=== PATIENT | male | born 2005 | race Asian ===

== ENCOUNTER 2025-05-24 09:13 | Inpatient (IN) ==
--- NOTE | 2025-05-24 09:22 | Emergency Department Note ---
Impression & Plan Confusion, Tachycardia, Weakness ED Provider Note NAME: [id number] AGE: 18 SEX: M : 2005 ARRIVES VIA: Ambulance INFORMANT: Patient, ED PROVIDER(S): Ray Juárez DO CHIEF COMPLAINT: Altered mental status HPI: Patient is a 18-year-old male who went to the [facility] from [place] yesterday. He was admitted there on a 201 for passive suicidal thoughts but no clear plan. No attempts per report from the nurse at the [facility] who I discussed with and provided additional history. They note that he at the time of arrival was having trouble walking and was very tired. Per report from EMS who provided additional history he fell and they brought him over here as he has been more confused. Patient denies any chest pain shortness of breath belly pain or head pain. He is able to otherwise follow commands. ADDITIONAL HISTORY OBTAINED: Per HPI Chronic Medical/Social Conditions Affecting Care: Per HPI PAST MEDICAL HISTORY:See Below PAST SURGICAL HISTORY:See Below FAMILY HISTORY:See Below SOCIAL HISTORY:See Below HOME MEDICATIONS:See Below ALLERGIES:See Below VITALS:See Below PHYSICAL EXAMINATION: GENERAL: Laying in bed, eyes closed, with crusting of bilateral eye lids, not opening eyes EYE EXAM: normal conjunctiva. PERRL and EOM's grossly intact. OROPHARYNX: no exudate, no erythema, lips, buccal mucosa, and tongue normal and mucous membranes are moist NECK: supple, no nuchal rigidity, no adenopathy, non-tender LUNGS: Clear to auscultation. Normal chest wall mechanics HEART: no murmurs, S1 normal and S2 normal ABDOMEN: abdomen soft, non-tender, normo-active bowel sounds, no masses, no rebound or guarding. BACK: Back is symmetrical on inspection and there is no deformity, no midline tenderness, no CVA tenderness. UPPER EXTREMITIES: upper extremities are grossly normal. LOWER EXTREMITIES: No pitting edema. NEURO EXAM: Oriented to person and follows commands speaks very softly, cranial nerves II-XII grossly intact, very soft one-word answers, no gross weakness of arms, no gross weakness of legs. MEDICAL DECISION MAKING: Patient is a 18-year-old male who presents ER for above-stated complaint. IV was established and blood work was obtained. Labs show no significant leukocytosis. Mild anemia at 13.3. BMP was unremarkable. VBG with a pH 7.4 with CO2 of 43. Troponin negative. Lipase normal. UA clean. Tox was negative. Marijuana negative. [place] negative. Patient did answer questions with one-word answers and did follow commands. CT of the head was negative. Chest x-ray unremarkable. Patient was given IV fluids. Discussed case with the hospitalist for further evaluation management treatment. Consults/Care Managements Discussions: Per [facility] Triage Nursing notes reviewed. Limited review of prior medical records performed Vital Signs: reviewed and remarkable for no significant abnormalities Differential diagnosis: Differential diagnoses includes but is not limited to toxic, metabolic, infectious, traumatic, cardiac, neurologic, hematologic, psychiatric and inflammatory etiologies. ER treatment provided: See below Diagnostics interpreted by me include EKG and cardiac monitoring as listed below: -Cardiac Monitoring: An order was placed for continuous cardiac monitoring. The monitor shows a rate of 101 with sinus rhythm. -ECG: Sinus tachycardia rate of 109 left axis No PVCs QTc 471 -Laboratory studies:Interpreted by me as stated above in MDM and shown below. Imaging studies: Xrays: As interpreted by me: Portable AP upright 1 view of the chest shows no focal Lutrate CTs show: CT head was negative per radiology Procedures:none Critical Care: None Past Med/Surg History Problem List (Updated 05/24/25 @ 15:33 by Ray Juárez DO) Weakness (Acute) Tachycardia (Acute) Confusion (Acute) Social History Hx Alcohol Use: No Hx Substance Use: No Communication Ability: Impaired Communication Ability Comment: too lethargic to communicate affectively. disoriented Current Living Situation: Other Current Living Situation Comment: from [place] currently residing at [place] Allergies Allergies Allergy/AdvReac Type Severity Reaction Status Date / Time No Known Allergies Allergy Verified 05/24/25 14:19 Home Meds Home Medications Medication Instructions Recorded Confirmed clozapine 25 mg tablet 25 mg PO DAILY 05/24/25 05/24/25 clozapine 25 mg tablet 50 mg PO HS 05/24/25 05/24/25 lamotrigine 25 mg tablet (Lamictal) 25 mg PO DAILY 05/24/25 05/24/25 lithium carbonate 450 mg 450 mg PO BID 05/24/25 05/24/25 tablet,extended release lorazepam 1 mg tablet 1 mg PO BID 05/24/25 05/24/25 Results & Data (ED) Vital Signs Vital Signs - 24 hr 05/24/25 09:39 05/24/25 09:39 05/24/25 09:39 Temperature 36.8 C Temperature Source Axillary Pulse Rate 113 H Respiratory Rate 22 Respiratory Effort / Characteristics Non-Labored Spontaneous Respiratory Depth Normal Blood Pressure 131/78 Blood Pressure Mean 95 Pulse Oximetry 97 97 97 Oxygen Delivery Method Room Air Room Air Room Air Sepsis Recent Fever Within 48 Hours No Sepsis New/Unexplained Change in Mental Status N/A Sepsis Action Taken by Nursing Physician Notified 05/24/25 10:43 Temperature Temperature Source Pulse Rate 113 H Respiratory Rate Respiratory Effort / Characteristics Respiratory Depth Blood Pressure Blood Pressure Mean Pulse Oximetry Oxygen Delivery Method Sepsis Recent Fever Within 48 Hours Sepsis New/Unexplained Change in Mental Status Sepsis Action Taken by Nursing Laboratory Data 05/24/25 10:33 05/24/25 10:33 Lab Results 05/24/25 05/24/25 Range/Units 09:15 10:33 WBC 6.07 (4.8-10.8) K/ul RBC 4.35 L (4.70-6.10) M/uL Hgb 13.3 L (14.0-18.0) g/dL Hct 39.7 L (42.0-52.0) % MCV 91.3 (80.0-100.0) fL MCH 30.6 (25.0-34.0) pg MCHC 33.5 (32.0-36.0) g/dL RDW Std Deviation 38.9 (36.4-46.3) fL RDW Coeff of Hannah 11.8 (11.5-14.5) % Plt Count 254 (130-400) K/uL MPV 8.3 L (9.4-12.4) fL Immature Gran % (Auto) 0.3 % Neut % (Auto) 67.5 % Lymph % (Auto) 22.1 % [place] % (Auto) 6.8 % Eos % (Auto) 2.8 % Baso % (Auto) 0.5 % Neut # (Auto) 4.10 (1.40-6.50) K/uL Lymph # (Auto) 1.34 (1.20-3.40) K/uL [place] # (Auto) 0.41 (0.11-0.59) K/uL Eos # (Auto) 0.17 (0.00-0.50) K/uL Baso # (Auto) 0.03 (0.00-0.20) K/uL Immature Gran # (Auto) 0.02 (0.01-0.20) K/uL D-Dimer < 190 (0-500) ug/L FEU Sodium 141 (136-145) mmol/L Potassium 3.6 (3.5-5.1) mmol/L Chloride 107 (98-107) mmol/L Carbon Dioxide 25 (21-32) mmol/L Anion Gap 9 (3-11) BUN 8 (6-23) mg/dl Creatinine 0.60 (0.6-1.4) mg/dl Est Cr Clr Drug Dosing 199.4 ml/min eGFR 139.97 BUN/Creatinine Ratio 13.3 (10-20) Glucose 86 (70-99(Fasting)) mg/dl Calcium 9.2 (8.6-10.3) mg/dl Total Bilirubin 0.6 (0.2-1.0) mg/dl AST 22 (13-39) U/L ALT 49 (7-52) U/L Alkaline Phosphatase 68 (34-104) U/L Troponin I High Sens < 2.3 (0-20) pg/ml Total Protein 7.1 (6.0-8.3) gm/dl Albumin 4.4 (3.4-5.0) gm/dl Globulin 2.7 (2.5-4.0) gm/dl Albumin/Globulin Ratio 1.6 (0.9-2) Lipase 9 L (11-82) U/L [place] 0.2 L (0.6-1.2) mmol/L Administered Medications Enoxaparin Sodium (Enoxaparin Inj 40 Mg/0.4 Ml Syr) 40 mg SQ Q24H RICARDO Stop: 06/23/25 14:59 Last Admin: 05/24/25 14:29 Dose: 40 mg Documented By: OS Lactated Ringer's (Lr) 1,000 mls @ 125 mls/hr IV .Q8H RICARDO Stop: 05/27/25 13:26 Last Admin: 05/24/25 13:37 Dose: 125 mls/hr Documented By: AM Discontinued Medications Sodium Chloride (Nss) 1,000 mls @ 999 mls/hr IV .Q1H1M RICARDO Stop: 05/24/25 11:30 Last Infusion: 05/24/25 13:39 Dose: Infused Documented By: Admin: 05/24/25 12:37 Dose: 999 mls/hr Documented By: akv Infusion: 05/24/25 11:07 Dose: Infused Documented By: akv Admin: 05/24/25 10:06 Dose: 999 mls/hr Documented By: [facility] Imaging Data Radiologist's Impression: Chest X-Ray 05/24/25 09:19 HISTORY: Chest pain TECHNIQUE: Portable AP radiograph of the chest. COMPARISON: None. FINDINGS: monitoring manager leads overlie the chest. No focal lung consolidation. No pneumothorax or effusion. Normal heart size. Left-sided aortic arch. Midline trachea.No acute osseous abnormality. The included upper abdomen is unremarkable. IMPRESSION: No acute cardiopulmonary findings. Electronically signed by Shad Castaneda 05-24-2025 09:[address] 05/24/25 09:19 HISTORY: Altered mental status. TECHNIQUE: CT of the head without contrast. Images are presented in axial, sagittal, and coronal reformats. COMPARISON: None. FINDINGS: No evidence of intracranial hemorrhage, abnormal extra axial fluid collection, mass effect, or midline shift.Ventricular caliber is appropriate. Fourth ventricle is midline. Basal cisterns are patent.Bermeo-white differentiation is maintained. Globes and orbits are unremarkable.Soft tissues about the skull base and scalp are unremarkable.Paranasal sinuses and mastoid air cells are clear. No calvarial fracture. IMPRESSION: No acute intracranial findings. Electronically signed by Shad Castaneda 05-24-2025 11:04 AM Discharge Plan Visit Data Chief Complaint: Altered Mental Status Stated Complaint: AMS ED Provider: Ray Juárez Discharge Problem: Confusion, Tachycardia, Weakness Patient Disposition: Admitted As Inpatient Condition: Fair Discharge Instructions Interventions: ED Discharge Assessment Last Done: 05/24/25 12:56
[2025-05-24] MEDS: SODIUM CHLORIDE 0.9% 1,000 ML IV SCH (10:06)
--- NOTE | 2025-05-24 10:19 | XRay Report ---
HISTORY: Chest pain TECHNIQUE: Portable AP radiograph of the chest. COMPARISON: None. FINDINGS: conveyor monitor leads overlie the chest. No focal lung consolidation. No pneumothorax or effusion. Normal heart size. Left-sided aortic arch. Midline trachea.No acute osseous abnormality. The included upper abdomen is unremarkable. IMPRESSION: No acute cardiopulmonary findings. Electronically signed by Shad Castaneda 05-24-2025 09:52 AM
[2025-05-24 10:50] LABS: Hematocrit (blood only) 39.7 % (42.0-52.0); Hemoglobin 13.3 g/dL (14.0-18.0); Immature Granulocytes # (auto) 0.02 K/uL (0.01-0.20); Immature Granulocytes % (auto) 0.3 %; Mean Corpuscular Hemoglobin 30.6 pg (25.0-34.0); Mean Corpuscular Volume 91.3 fL (80.0-100.0); Platelet Count 254 K/uL (130-400); RDW Standard Deviation 38.9 fL (36.4-46.3); Red Blood Count 4.35 M/uL (4.70-6.10); White Blood Count 6.07 K/ul (4.8-10.8)
--- NOTE | 2025-05-24 11:04 | CT Scan Report ---
HISTORY: Altered mental status. TECHNIQUE: CT of the head without contrast. Images are presented in axial, sagittal, and coronal reformats. COMPARISON: None. FINDINGS: No evidence of intracranial hemorrhage, abnormal extra axial fluid collection, mass effect, or midline shift.Ventricular caliber is appropriate. Fourth ventricle is midline. Basal cisterns are patent.Bermeo-white differentiation is maintained. Globes and orbits are unremarkable.Soft tissues about the skull base and scalp are unremarkable.Paranasal sinuses and mastoid air cells are clear. No calvarial fracture. IMPRESSION: No acute intracranial findings. Electronically signed by Shad Castaneda 05-24-2025 11:04 AM
[2025-05-24 11:09] LABS: Alanine Aminotransferase 49 U/L (7-52); Albumin Globulin Ratio 1.6 (0.9-2); Albumin Level 4.4 gm/dl (3.4-5.0); Alkaline Phosphatase 68 U/L (34-104); Anion Gap 9 (3-11); Bilirubin,Total 0.6 mg/dl (0.2-1.0); Blood Urea Nitrogen 8 mg/dl (6-23); Calcium 9.2 mg/dl (8.6-10.3); Carbon Dioxide 25 mmol/L (21-32); Chloride 107 mmol/L (98-107); Creatinine Clr Calc Pharmacy 199.4 ml/min; Globulin 2.7 gm/dl (2.5-4.0); Glucose 86 mg/dl (70-99(Fasting)); Lipase 9 U/L (11-82); Potassium 3.6 mmol/L (3.5-5.1); Sodium 141 mmol/L (136-145); Total Protein 7.1 gm/dl (6.0-8.3)
--- NOTE | 2025-05-24 12:19 | History & Physical Report ---
Date of Service May 24, 2025 Assessment & Plan (1) Confusion: Plan: 20-year-old male was admitted to [facility] last night from hospital from [facility] for suicidal ideation. Seems patient was having trouble walking and very tired on arrival to [facility]. Seems he fell over and was confused and was brought to the hospital .As per the [facility] did not give any more medication than what he is on from the outside hospital. Currently, not able to contact his father. Right now patient is drowsy. And when tried to wake him up he opens his eyes and mumbles and goes back to sleep. Could not get any history from the patient. He is able to move his neck on command freely. Not able get much history from the patient. For the ER he seemed to be oriented to name and followed some commands. Confusion Lethargy Afebrile No leukocytosis, LFTs okay, electrolytes okay, renal function okay [place] level 0.2 CT head okay Neck seems supple VBG, ammonia level, drug screen unremarkable as not improving will agapito MRI head and EEG Will consult neurology Psychiatric illness Suicidal ideation One-on-one Will hold his current medications as patient currently lethargic Psychiatry consult for further recommendation Zyprexa as needed for agitation for now Tachycardia Sinus tachycardia Troponin negative Negative D-dimer IV fluids Will monitor DVT prophylaxis Lovenox Disposition Telemetry Full code. History of Present Illness Chief Complaint: Confusion Primary Care Provider: NO PCP 20-year-old male was admitted to [facility] last night from hospital from [facility] for suicidal ideation. Seems patient was having trouble walking and very tired on arrival to [facility]. Seems he fell over and was confused and was brought to the hospital .As per the [facility] did not give any more medication than what he is on from the outside hospital. Currently, not able to contact his father. Right now patient is drowsy. And when tried to wake him up he opens his eyes and mumbles and goes back to sleep. Could not get any history from the patient. He is able to move his neck on command freely. Not able get much history from the patient. For the ER he seemed to be oriented to name and followed some commands. Past medical history. Unknown at this time. Past surgical history. Unknown at this time. Family history. Unknown at this time. Allergies Allergy/AdvReac Type Severity Reaction Status Date / Time No Known Allergies Allergy Verified 12/14/25 14:19 Home Medications Medication Instructions Recorded Confirmed Type clozapine 25 mg tablet 25 mg PO DAILY 05/24/25 05/24/25 History clozapine 25 mg tablet 50 mg PO HS 05/24/25 05/24/25 History lamotrigine 25 mg tablet (Lamictal) 25 mg PO DAILY 05/24/25 05/24/25 History lithium carbonate 450 mg 450 mg PO BID 05/24/25 05/24/25 History tablet,extended release lorazepam 1 mg tablet 1 mg PO BID 05/24/25 05/24/25 History Past Med/Surg History Problem List (Updated 05/24/25 @ 16:10 by Stacy Roach DO) Schizoaffective disorder, bipolar type Delirium Weakness (Acute) Tachycardia (Acute) Confusion (Acute) Social History Hx Alcohol Use: No Hx Substance Use: No Communication Ability: Impaired Communication Ability Comment: too lethargic to communicate affectively. disoriented Current Living Situation: Other Current Living Situation Comment: from [place] currently residing at [place] Review of Systems Review of Systems: Unobtainable due to reduced consciousness Physical Exam Physical Exam: General- Drowsy Head- atraumatic Eyes- difficult to open eyes Neck- supple, no JVD. Lungs- clear to auscultation no wheezing or crackles Heart- regular rhythm;tachycardia, no murmur, no gallop. Abdomen- normal bowel sounds, soft, no distension Extremities- no pretibial edema, no erythema seen Neuro- drowsy, on calling opens eyes and mumbles,not obeying commands Results & Data Results & Data Vital Signs (Past 12 Hours) Vital Signs Temp Pulse Resp BP Pulse Ox O2 Del Method 05/24/25 10:43 113 H 05/24/25 09:39 97 Room Air 05/24/25 09:39 97 Room Air 05/24/25 09:39 36.8 C 113 H 22 131/78 97 Room Air Diagnostic Findings Laboratory Results WBC 6.07 K/ul (4.8-10.8) 05/24/25 10:33 RBC 4.35 M/uL (4.70-6.10) L 05/24/25 10:33 Hgb 13.3 g/dL (14.0-18.0) L 05/24/25 10:33 Hct 39.7 % (42.0-52.0) L 05/24/25 10:33 MCV 91.3 fL (80.0-100.0) 05/24/25 10:33 MCH 30.6 pg (25.0-34.0) 05/24/25 10:33 MCHC 33.5 g/dL (32.0-36.0) 05/24/25 10:33 RDW Std Deviation 38.9 fL (36.4-46.3) 05/24/25 10:33 RDW Coeff of Hannah 11.8 % (11.5-14.5) 05/24/25 10:33 Plt Count 254 K/uL (130-400) 05/24/25 10:33 MPV 8.3 fL (9.4-12.4) L 05/24/25 10:33 Immature Gran % (Auto) 0.3 % 05/24/25 10:33 Neut % (Auto) 67.5 % 05/24/25 10:33 Lymph % (Auto) 22.1 % 05/24/25 10:33 [place] % (Auto) 6.8 % 05/24/25 10:33 Eos % (Auto) 2.8 % 05/24/25 10:33 Baso % (Auto) 0.5 % 05/24/25 10:33 Neut # (Auto) 4.10 K/uL (1.40-6.50) 05/24/25 10:33 Lymph # (Auto) 1.34 K/uL (1.20-3.40) 05/24/25 10:33 [place] # (Auto) 0.41 K/uL (0.11-0.59) 05/24/25 10:33 Eos # (Auto) 0.17 K/uL (0.00-0.50) 05/24/25 10:33 Baso # (Auto) 0.03 K/uL (0.00-0.20) 05/24/25 10:33 Immature Gran # (Auto) 0.02 K/uL (0.01-0.20) 05/24/25 10:33 Sodium 141 mmol/L (136-145) 05/24/25 10:33 Potassium 3.6 mmol/L (3.5-5.1) 05/24/25 10:33 Chloride 107 mmol/L (98-107) 05/24/25 10:33 Carbon Dioxide 25 mmol/L (21-32) 05/24/25 10:33 Anion Gap 9 (3-11) 05/24/25 10:33 BUN 8 mg/dl (6-23) 05/24/25 10:33 Creatinine 0.60 mg/dl (0.6-1.4) 05/24/25 10:33 Est Cr Clr Drug Dosing 199.4 ml/min 05/24/25 10:33 eGFR 139.97 05/24/25 10:33 BUN/Creatinine Ratio 13.3 (10-20) 05/24/25 10:33 Glucose 86 mg/dl (70-99(Fasting)) 05/24/25 10:33 Calcium 9.2 mg/dl (8.6-10.3) 05/24/25 10:33 Total Bilirubin 0.6 mg/dl (0.2-1.0) 05/24/25 10:33 AST 22 U/L (13-39) 05/24/25 10:33 ALT 49 U/L (7-52) 05/24/25 10:33 Alkaline Phosphatase 68 U/L (34-104) 05/24/25 10:33 Troponin I High Sens < 2.3 pg/ml (0-20) 05/24/25 10:33 Total Protein 7.1 gm/dl (6.0-8.3) 05/24/25 10:33 Albumin 4.4 gm/dl (3.4-5.0) 05/24/25 10:33 Globulin 2.7 gm/dl (2.5-4.0) 05/24/25 10:33 Albumin/Globulin Ratio 1.6 (0.9-2) 05/24/25 10:33 Lipase 9 U/L (11-82) L 05/24/25 10:33 [place] 0.2 mmol/L (0.6-1.2) L 05/24/25 10:33 Impressions Chest X-Ray 05/24/25 09:19 HISTORY: Chest pain TECHNIQUE: Portable AP radiograph of the chest. COMPARISON: None. FINDINGS: monitoring analyst leads overlie the chest. No focal lung consolidation. No pneumothorax or effusion. Normal heart size. Left-sided aortic arch. Midline trachea.No acute osseous abnormality. The included upper abdomen is unremarkable. IMPRESSION: No acute cardiopulmonary findings. Electronically signed by Shad Castaneda 05-24-2025 09:[address] 05/24/25 09:19 HISTORY: Altered mental status. TECHNIQUE: CT of the head without contrast. Images are presented in axial, sagittal, and coronal reformats. COMPARISON: None. FINDINGS: No evidence of intracranial hemorrhage, abnormal extra axial fluid collection, mass effect, or midline shift.Ventricular caliber is appropriate. Fourth ventricle is midline. Basal cisterns are patent.Bermeo-white differentiation is maintained. Globes and orbits are unremarkable.Soft tissues about the skull base and scalp are unremarkable.Paranasal sinuses and mastoid air cells are clear. No calvarial fracture. IMPRESSION: No acute intracranial findings. Electronically signed by Shad Castaneda 05-24-2025 11:04 AM ECG Additional Comments: ECG. Sinus tachycardia rate of 109. Possible left atrial enlargement. Incomplete right bundle branch block. QTc 471 Code Status & VTE Plan VTE Prophylaxis Plan VTE Prophylaxis will be ordered: Yes
[2025-05-24 12:49] LABS: Base Excess VBG 2.2 mEq/L; HCO3 VBG 27 mmol/L; Oxygen Saturation VBG 80.7 %; PCO2 VBG 43 mmHg (38-50); PO2 VBG 46 mmHg; pH VBG 7.41 (7.36-7.41)
[2025-05-24] MEDS ORDERED: POLYETHYLENE (MIRALAX) 17 GM PACK PO PRN (13:27)
[2025-05-24] MEDS: LACTATED RINGER'S 1,000 ML IV SCH (13:37)
[2025-05-24] MEDS ORDERED: INFLUENZA VACC TS2025-26(6m+)/PF (IIV3) 0.5mL Syr IM ONE (13:47)
[2025-05-24] MEDS: ENOXAPARIN INJ 40 MG/0.4 ML SYR SQ SCH (14:29)
[2025-05-24 14:30] LABS: Appearance Urine Clear (Clear); Glucose Urine UA Negative (Negative)
[2025-05-24 14:52] LABS: Amphetamines+Metham, Urine Neg (Neg); MDMA (Ecstacy), Urine Neg (Neg); Marijuana, Urine Neg (Neg)
--- NOTE | 2025-05-24 16:27 | Psychiatric Consultation ---
Date of Consultation May 24, 2025 Impression / Recommendations Impression Patient is a 20-year-old male, with history of schizoaffective disorder bipolar type, and possibly recently initiated on Clozaril and lithium. He is now presenting with psychomotor slowing, confusion, lethargy, recent fall, intention tremor and waxing and waning confusion/disorientation. He also continues to report auditory hallucinations, but that may his baseline given his psychiatric diagnosis. Since at this point we are assuming this is a acute change to his mental status, diagnosis is most consistent with hypoactive delirium, and workup should continue for the cause of the delirium. I recommend full neurologic workup, including a brain MRI and an EEG to rule out CVA and seizure. Cardiac arrhythmia is also possibility, and he remains on telemetry for now. [place] toxicity is not likely, given his level is 0.2. I do recommend holding all psychiatric meds until we see improvement in his mental status. Although he is on 2 antipsychotics, NMS is not likely since he does not have rigidity, hypertension or fever. Although it is unclear how long he has really been on Clozaril, important to keep in mind that complications from Clozaril treatment can be serious and quite varied, including cardiac (arrhythmias, myocarditis or pericarditis, cardiomyopathy), anticholinergic ( dry mouth, blurred vision, urinary retention, constipation and cognitive dysfunction), GI (toxic megacolon, hepatotoxicity), heme (neutropenia or agranulocytosis, DVT), and metabolic (hyperlipidemia, insulin resistance, increased cardiovascular risk, weight gain). It is also possible that this is catatonia associated with his psychotic disorder. However that is lower on my differential. I'm also hesitant to start scheduled benzo given his lethargy and confusion. We are going to work on getting a better history of his recent and past presentations, either from [facility], his parents or his outpatient provider, which may help clarify this. I do recommend continuing on the 1:1 for safety, and suicide risk precautions. Overall, I spent a total of 70 minutes on this patient's care, including review of chart/records, direct evaluation of the patient, coordination with nursing, interdisciplinary team meeting, and documentation. (1) Delirium: (2) Schizoaffective disorder, bipolar type: Psych History Identifying Data Clifton Glass is a 20-year-old male who was admitted to [facility] today for altered mental status workup. Consult is by the hospitalist service for lethargy, psychiatric illness, SI. Chief Complaint "[]". History of Present Illness Patient is originally from [place] and was recently admitted to [facility] for suicidal ideation. Reportedly once he arrived he appeared lethargic, mumbling and giving one-word answers, so he was sent here for medical evaluation. He also reportedly had a fall. Per their report, patient "had a mental breakdown 6 months ago" and has been inpatient several times since then. He has a diagnosis of schizoaffective disorder bipolar type. He is supposed to be taking Lamictal 25 mg daily, lithium 450 mg twice daily, Invega Sustenna (last given 05/18), Klonopin 0.5 mg twice daily as needed, and clozapine 50 mg nightly to 25 mg every morning. They stated his lithium level in the admit packet was 1.18, however level here was 0.2. He was at their facility for only a few hours before transport. Since arrival to the emergency room, Patient has had a slew of tests, most of which were normal. Blood gas, lactate, CPK, UDS, UA, CBC, CMP were all within normal limits. Head CT and chest x-ray were also normal. His blood pressure has been within normal limits. Afebrile. His heart rate has been tachy, and the EKG report did indicate possible right bundle branch block. tropes have been negative. QTc was 471. Psychiatric medications have been held. He has significant dry mouth, and crusty discharge around his eyes. He is receiving IV fluids. He has been intermittently lethargic, at times confused, and other times more oriented. His speech is very soft, and he gives short answers. I met with patient in his room, along with the psychiatric liaison. At first, he was whispering and repeated phrase rapidly to himself, but neither the psych liaison nor myself could understand what the words were, or if they were in Syriac or word salad. However with more targeted questioning, he was able to give meaningful answer, though speech remained soft and mumbled. He did best with yes or no questions. He acknowledged having auditory hallucinations and denied visual hallucinations. He acknowledged feeling depressed recently, and that he [facility] He said he feels very tired and at times confused. He also reports mouth pain, but cannot describe where exactly around his mouth or jaw, or what type of pain it was. He did know his name, but not where he was. Did indicate that Clozaril and lithium are both new medications to him, and that they were started recently at a hospital setting. He did acknowledge that he lives with his parents, and gave permission for us to contact them for more information. he was able to follow some instructions, including [id number], exorcist ocular eye movements testing and repeating "no ifs, ands or buts." However, he had difficulty with changes in the instructions, for instance when I asked him to point with his left hand instead of his right, or when I asked him to hold his hands but not touch his fingers to mine. He had a notable intention tremor, and some asterixis. Did not have notable rigidity or cogwheeling. No resting tremor. He did appear to be falling asleep toward the end of the encounter. Past Psychiatric History Previous Psych History: Reports gnosis of schizoaffective disorder, bipolar type. Reported history of multiple psychiatric hospitalizations this year. Patient to [facility] for suicidal ideation with no plan. No reported history of suicide attempts, although there is still much history to be gathered. Calls have been put out to patient's parents as well as his outpatient psychiatric provider, but no contact has yet been made. Patient reports Clozaril and lithium are new additions to his medication list. Invega Sustenna was last given on 05/18/2025 Allergies Allergy/AdvReac Type Severity Reaction Status Date / Time No Known Allergies Allergy Verified 05/24/25 14:19 Home Medications Medication Instructions Recorded Confirmed Type clozapine 25 mg tablet 25 mg PO DAILY 05/24/25 05/24/25 History clozapine 25 mg tablet 50 mg PO HS 05/24/25 05/24/25 History lamotrigine 25 mg tablet (Lamictal) 25 mg PO DAILY 05/24/25 05/24/25 History lithium carbonate 450 mg 450 mg PO BID 05/24/25 05/24/25 History tablet,extended release lorazepam 1 mg tablet 1 mg PO BID 05/24/25 05/24/25 History Patient History Social History Hx Alcohol Use: No Hx Substance Use: No Communication Ability: Impaired Communication Ability Comment: too lethargic to communicate affectively. disoriented Current Living Situation: Other Current Living Situation Comment: from [place] currently residing at [facility] Physical Exam Psychiatric: Orientation: oriented to person intermittently lethargic Apperance: + disheveled Eye Contact: + poor eye contact Motor Behavior: + psychomotor retardation and + tremor soft, mumbled, one-word answers. At one point, was rapidly repeating an unclear phrase to himself. Affect: + flat affect Mood: + depressed mood Thought Process: + thought blocking, + concrete thought process and thought association intact Poverty of thought reported he had suicidal thoughts, but without plan or intent [facility] None Hallucinations: + auditory hallucinations; no visual hallucinations Cognition: + recent memory not intact, + remote memory not intact, + attention not intact and + language not intact grossly impaired Insight: + limited insight Judgment: + limited judgement Vital Signs (Past 24 Hours): Last Vital Signs Temp 36.7 C 05/24/25 13:38 Pulse 124 H 05/24/25 15:00 Resp 20 05/24/25 13:38 BP 132/73 05/24/25 13:38 Pulse Ox 98 05/24/25 14:08 O2 Del Method Room Air 05/24/25 14:08 Review of Systems Unable to fully obtain due to mental status. He reports mouth pain, and denied most other symptoms. He does have a tremor Results & Data (PSY) Medications Administered Enoxaparin Sodium (Enoxaparin Inj 40 Mg/0.4 Ml Syr) 40 mg SQ Q24H RICARDO Stop: 06/23/25 14:59 Last Admin: 05/24/25 14:29 Dose: 40 mg Documented By: OS Lactated Ringer's (Lr) 1,000 mls @ 125 mls/hr IV .Q8H RICARDO Stop: 05/27/25 13:26 Last Admin: 05/24/25 13:37 Dose: 125 mls/hr Documented By: AM Coding Level of Care Code 86095 IN/OBS CONSULT LVL 4,60M Diagnoses Delirium R41.0 Schizoaffective disorder, bipolar type F25.0
[2025-05-25] MEDS: ONDANSETRON INJ 2 MG/ML 2 ML VIAL IV PRN (01:30)
--- NOTE | 2025-05-25 01:54 | XRay Report ---
Exam(s): XR CXR 1 VIEW EXAM: XR Chest, 1 View CLINICAL HISTORY: Reason for exam: sob. TECHNIQUE: Frontal view of the chest. COMPARISON: Prior chest x-ray from May 24, 2025. FINDINGS: Lungs: Mild peribronchial thickening of the central bronchi. No consolidation. Pleural space: Tiny left pleural effusion. No pneumothorax. Heart: Unremarkable. No cardiomegaly. Mediastinum: Unremarkable. Normal mediastinal contour. Bones/joints: Unremarkable. No acute fracture. IMPRESSION: Bronchitis, which may be of infectious or inflammatory etiologies. Tiny left pleural effusion. No consolidation. Electronically signed by: Mariel Loving MD 05/25/25 01:53 AM
--- NOTE | 2025-05-25 05:46 | Electrocardiogram Report ---
Test Reason : Blood Pressure : */* mmHG Vent. Rate : 109 BPM Atrial Rate : 109 BPM P-R Int : 150 ms QRS Dur : 92 ms QT Int : 350 ms P-R-T Axes : 72 -30 57 degrees QTcB Int : 471 ms Sinus tachycardia Possible Left atrial enlargement Left axis deviation Incomplete right bundle branch block Abnormal ECG No previous ECGs available Confirmed by Luis Ely ([id number]) on 05/25/2025 5:45:55 AM Referred By: Confirmed By: Luis Ely
[2025-05-25 05:54] LABS: Hematocrit (blood only) 37.9 % (42.0-52.0); Hemoglobin 12.5 g/dL (14.0-18.0); Immature Granulocytes # (auto) 0.03 K/uL (0.01-0.20); Immature Granulocytes % (auto) 0.5 %; Mean Corpuscular Hemoglobin 30.3 pg (25.0-34.0); Mean Corpuscular Volume 92.0 fL (80.0-100.0); Platelet Count 235 K/uL (130-400); RDW Standard Deviation 39.5 fL (36.4-46.3); Red Blood Count 4.12 M/uL (4.70-6.10); White Blood Count 5.85 K/ul (4.8-10.8)
[2025-05-25 06:12] LABS: Anion Gap 11.0 (3-11); Blood Urea Nitrogen 6.0 mg/dl (6-23); Calcium 8.6 mg/dl (8.6-10.3); Carbon Dioxide 22.0 mmol/L (21-32); Chloride 104.0 mmol/L (98-107); Creatinine Clr Calc Pharmacy 199.4 ml/min; Glucose 62.0 mg/dl (70-99(Fasting)); Magnesium 1.8 mg/dl (1.7-2.4); Potassium 3.5 mmol/L (3.5-5.1); Sodium 137.0 mmol/L (136-145)
[2025-05-25 08:07] LABS: Thyroid Stimulating Hormone 0.679 uIu/ml (0.300-4.500)
--- NOTE | 2025-05-25 09:57 | XRay Report ---
XR KUB pre MRI CLINICAL HISTORY: for MRI COMPARISON STUDY: No previous studies for comparison. FINDINGS: Multiple leads overlie the abdomen and pelvis. There are no unexpected radiopaque within th e abdomen or pelvis. Bowel gas pattern is normal. IMPRESSION: No contraindication to MRI within the abdomen or pelvis. ACT 112: Negative or not required by law. Electronically signed by: Nikolas Smith M.D. 05/25/2025 9:56 AM
[2025-05-25 10:29] LABS: Creatine Kinase 60.0 U/L (30-223)
[2025-05-25] MEDS: GADOBUTROL 65ML VIAL IV ONE (12:38)
--- NOTE | 2025-05-25 13:12 | Magnetic Resonance Report ---
MRI OF THE BRAIN COMBO CLINICAL HISTORY: Confusion. COMPARISON STUDY: Head CT May 24, 2025. TECHNIQUE: MRI of the brain was performed utilizing various T1 and T2-weighted sequences in the axial , sagittal, and coronal planes. Contrast-enhanced sequences were acquired following the administratio n of 7.5 cc of Gadavist. FINDINGS: Brain parenchyma: There are no foci of restricted diffusion to suggest acute infarct. No acute intrac ranial hemorrhage, midline shift or mass effect is present. There is no intracranial mass or patholog ic enhancement. There is no significant parenchymal signal abnormality. Ventricles, sulci, and cisterns: There is no hydrocephalus. The basal cisterns are patent. There are no extra-axial collections. Pituitary and sella: Unremarkable. Intracranial vasculature: Flow-voids for the major intracranial vessels are present. Orbits: Orbital contents are unremarkable. Sinuses and mastoids: There is a small air-fluid level within the right sphenoid sinus. Calvarium: No calvarial lesions are identified. Cervical cord: Partially visualized cervical spinal cord is normal in morphology and signal intensity . IMPRESSION: ACT 112: Negative or not required by law. Electronically signed by: Nikolas Smith M.D. 05/25/2025 1:10 PM
--- NOTE | 2025-05-25 13:41 | Hospitalist Progress Note ---
Date of Service May 25, 2025 Assessment & Plan (1) Confusion: Plan: 20-year-old male was admitted to [facility] last night from hospital from [facility] for suicidal ideation. Seems patient was having trouble walking and very tired on arrival to [facility]. Seems he fell over and was confused and was brought to the hospital .As per the karen did not give any more medication than what he is on from the outside hospital. Currently, not able to contact his father. Right now patient is drowsy. And when tried to wake him up he opens his eyes and mumbles and goes back to sleep. Could not get any history from the patient. He is able to move his neck on command freely. Not able get much history from the patient. For the ER he seemed to be oriented to name and followed some commands. #Confusion #Lethargy -Metabolic causes at this point have been ruled out -VBG normal, NH3 normal, TSH normal, B12 normal. -Unclear etiology -Differential is broad with neuro and psychiatric causes remaining -Reviewed MRI brain, no acute pathology -Subclinical status is possible. Overall low suspicion for [employer]IE[employer]ER T[employer] infection given lack of fever, leukocytosis, nuchal rigidity, headache etc -D/w psychiatry, low suspicion for NMS. Afebrile, CK normal, no lead pipe rigidity -If subclinical status is ruled out, hypoactive delirium most likely diagnosis Plan -Greatly appreciate neuro and psychiatry input -Await EEG -NPO for now until his mental status improves. IVF -Holding home psych regimen -Avoid sedating medications -PRN zyprexa -Sitter for now DVT prophylaxis Lovenox Disposition Telemetry Full code. I spent a total of 65 minutes coordinating, documenting, and providing care for this patient excluding time spent in the performance of separately billed services. This included personally reviewing all current laboratories and imaging studies, medical reconciliation, outpatient chart review and discussion with specialists Admission and Anticipated Discharge Date Admission Date: May 24, 2025 Subjective lethargic. will follow basic commands. difficult to arouse however. Patient denies CHOWDHURY neck stiffness F/C, CP, palpitations, SOB, dyspnea, abd pain, N/V/D. patient seen and examined multiple times throughout the day. d/w psych as well Physical Exam Physical Exam: Vitals and labs reviewed General: Well appearing, NAD HEENT: EOMI, PERRLA Neck: Supple. no nuchal rigidity Cardiac: RRR no rubs gallops or murmurs Lungs: CTA no rhonchi wheezing or rales Abd: S NT ND BS positive : Deffered MSK: Full ROM. No obvious deformities Ext: No Edema cyanosis Skin: Warm, Dry Neuro: drowsy, follows basic commands. cogwheeling rigidity but no lead pipe rigidity. Psych: calm Results & Data Results & Data Vital Signs (Past 12 Hours) Vital Signs Temp Pulse Pulse Resp BP Pulse Ox O2 Del Method 05/25/25 10:36 37.0 C 85 20 122/70 97 Room Air 05/25/25 08:00 77 05/25/25 07:05 36.7 C 84 20 121/64 99 Room Air 05/25/25 05:30 36.6 C 85 18 130/76 99 Room Air Laboratory Results Abnormal lab results 05/24/25 05/25/25 Range/Units 13:33 05:26 RBC 4.12 L (4.70-6.10) M/uL Hgb 12.5 L (14.0-18.0) g/dL Hct 37.9 L (42.0-52.0) % MPV 8.4 L (9.4-12.4) fL Glucose 62 L (70-99(Fasting)) mg/dl Urine pH 8.5 H (4.5-7.5) Urine Ketones 1+ H (Negative)
[2025-05-25] MEDS: D5W AND LACTATED RINGERS 1,000 ML IV SCH (14:10)
--- NOTE | 2025-05-25 14:41 | Neurology Consultation ---
Date of Consultation May 25, 2025 Assessment & Plan (1) Encephalopathy: Agree with Psych consultation 1:1 monitoring/suicide precautions Suspect psych etiology to presentation Possible metabolic encephalopathy Low suspicion for infection Agree with continued monitoring/workup for possible infection Recommend obtain EEG Provide seizure precautions Utilize benzodiazepines emergently for any breakthrough clinical seizure like activity Continue frequent neurological assessments Obtain stat CT brain without contrast for any acute neurological decline Continue to monitor/control blood pressure & blood glucose Continue to monitor telemetry closely Continue to monitor renal and hepatic function, keep euvolemic Ok from neurology perspective for VTE prophylaxis Telehealth Consultation Telehealth Information Telehealth Information: I performed this visit using a real-time telehealth connection between my location and the patients originating location ([facility]). After connecting through interactive tele-video, patient was identified by name and date of and/or wristband check.Patient (or authorized healthcare freight representative) was informed that this was a telemedicine visit and it was being conducted confidentially over secure lines. My office door was closed and no one else was present in the room with me.Patient (or authorized healthcare freight representative) provided consent to proceed with the visit, expressed an understanding of privacy and security of the telemedicine visit, and gave permission to have a hospital freight representative in the room in order to assist with the visit and to conduct portions of the visit, as needed. I informed the patient (or authorized healthcare freight representative) that I reviewed their record and presented the opportunity for them to ask any questions regarding the visit today. The patient agreed to participate. History of Present Illness Reason for Consultation: Changes in mentation Requesting Physician: Dr Perez Attending Physician: Lance Perez, DO History of Present Illness 20yo male presented from admission to [facility] for SI. Reportedly arrived tired with difficulty ambulating. Seemed confused suffered fall. Has undergone MRI brain fortunately depicting no overt evidence of abnormality. Agree with Psych consultation. Agree with continued workup per primary hospitalist team. EEG remains pending this AM. Continue seizure precautions; continue 1:1 monitoring. Allergies Allergy/AdvReac Type Severity Reaction Status Date / Time No Known Allergies Allergy Verified 05/24/25 14:19 Home Medications Medication Instructions Recorded Confirmed Type clozapine 25 mg tablet 25 mg PO DAILY 05/24/25 05/24/25 History clozapine 25 mg tablet 50 mg PO HS 05/24/25 05/24/25 History lamotrigine 25 mg tablet (Lamictal) 25 mg PO DAILY 05/24/25 05/24/25 History lithium carbonate 450 mg 450 mg PO BID 05/24/25 05/24/25 History tablet,extended release lorazepam 1 mg tablet 1 mg PO BID 05/24/25 05/24/25 History Patient History Social History Hx Alcohol Use: No Hx Substance Use: No Communication Ability: Impaired Communication Ability Comment: too lethargic to communicate affectively. disoriented Current Living Situation: Other Current Living Situation Comment: from [place] currently residing at [facility] Physical Exam Neurological Examination: Mental Status: Sleeping able to be awakened RN at bedside helpful with exam Patient awake- will name objects and read words correctly on televideo screen Affect flat fluency slowed, hypophonia CN testing: I: Deferred II: Reports visual hallucination III/IV/: No evidence of gaze preference, hippus, nystagmus or roving eye movements V: Facial sensation reportedly grossly intact to light touch bilaterally VII: Facial movements appear without evidence of asymmetry VIII: Hearing appears grossly intact to loud voice bilaterally IX/X: Palate is unable to be accurately visualized XI: Shoulder shrug appears symmetric/ grossly intact bilaterally XII: Tongue protrudes midline without evidence of biting Motor exam: Spontaneous slowed antigravity movement in all extremities Tone: Unable to accurately assess via telemedicine Sensory: Sensation is reportedly grossly intact throughout Coordination: Deferred Reflexes: Unable to accurately assess via telemedicine Gait: Deferred Results & Data Vital Signs (Past 12 Hours) Vital Signs Temp Pulse Pulse Resp BP Pulse Ox O2 Del Method 05/25/25 14:38 96 H 05/25/25 10:36 37.0 C 85 20 122/70 97 Room Air 05/25/25 08:00 77 05/25/25 07:05 36.7 C 84 20 121/64 99 Room Air 05/25/25 05:30 36.6 C 85 18 130/76 99 Room Air Laboratory Results Abnormal lab results 05/25/25 05/25/25 Range/Units 05:26 13:47 RBC 4.12 L (4.70-6.10) M/uL Hgb 12.5 L (14.0-18.0) g/dL Hct 37.9 L (42.0-52.0) % MPV 8.4 L (9.4-12.4) fL Glucose 62 L (70-99(Fasting)) mg/dl POC Glucose 61 L* (70-99) mg/dl Diagnostic Findings Chest X-Ray 05/24/25 22:47 Exam(s): XR CXR 1 VIEW EXAM: XR Chest, 1 View CLINICAL HISTORY: Reason for exam: sob. TECHNIQUE: Frontal view of the chest. COMPARISON: Prior chest x-ray from May 24, 2025. FINDINGS: Lungs: Mild peribronchial thickening of the central bronchi. No consolidation. Pleural space: Tiny left pleural effusion. No pneumothorax. Heart: Unremarkable. No cardiomegaly. Mediastinum: Unremarkable. Normal mediastinal contour. Bones/joints: Unremarkable. No acute fracture. IMPRESSION: Bronchitis, which may be of infectious or inflammatory etiologies. Tiny left pleural effusion. No consolidation. Electronically signed by: Mariel Loving MD 05/25/25 01:53 AM Brain MRI 05/25/25 08:00 MRI OF THE BRAIN COMBO CLINICAL HISTORY: Confusion. COMPARISON STUDY: Head CT May 24, 2025. TECHNIQUE: MRI of the brain was performed utilizing various T1 and T2-weighted sequences in the axial, sagittal, and coronal planes. Contrast-enhanced sequences were acquired following the administration of 7.5 cc of Gadavist. FINDINGS: Brain parenchyma: There are no foci of restricted diffusion to suggest acute infarct. No acute intracranial hemorrhage, midline shift or mass effect is present. There is no intracranial mass or pathologic enhancement. There is no significant parenchymal signal abnormality. Ventricles, sulci, and cisterns: There is no hydrocephalus. The basal cisterns are patent. There are no extra-axial collections. Pituitary and sella: Unremarkable. Intracranial vasculature: Flow-voids for the major intracranial vessels are present. Orbits: Orbital contents are unremarkable. Sinuses and mastoids: There is a small air-fluid level within the right sphenoid sinus. Calvarium: No calvarial lesions are identified. Cervical cord: Partially visualized cervical spinal cord is normal in morphology and signal intensity. IMPRESSION: ACT 112: Negative or not required by law. Electronically signed by: Nikolas Smith M.D. 05/25/2025 1:10 PM KUB X-Ray 05/25/25 09:23 XR KUB pre MRI CLINICAL HISTORY: for MRI COMPARISON STUDY: No previous studies for comparison. FINDINGS: Multiple leads overlie the abdomen and pelvis. There are no unexpected radiopaque within the abdomen or pelvis. Bowel gas pattern is normal. IMPRESSION: No contraindication to MRI within the abdomen or pelvis. ACT 112: Negative or not required by law. Electronically signed by: Nikolas Smith M.D. 05/25/2025 9:56 AM Medications Administered Home Medications Medication Instructions Recorded Confirmed Last Taken clozapine 25 mg tablet 25 mg PO DAILY 05/24/25 05/24/25 Unknown clozapine 25 mg tablet 50 mg PO HS 05/24/25 05/24/25 Unknown lamotrigine 25 mg tablet (Lamictal) 25 mg PO DAILY 05/24/25 05/24/25 Unknown lithium carbonate 450 mg 450 mg PO BID 05/24/25 05/24/25 Unknown tablet,extended release lorazepam 1 mg tablet 1 mg PO BID 05/24/25 05/24/25 Unknown Active Medications Generic Name Dose Route Start Last Admin Trade Name Freq PRN Reason Stop Dose Admin Enoxaparin Sodium 40 mg 05/24/25 15:00 05/25/25 14:33 Enoxaparin Inj 40 Mg/0.4 Ml Syr SQ 06/23/25 14:59 40 mg Q24H RICARDO Administration Dextrose/Lactated Ringer's 1,000 mls @ 80 mls/hr 05/25/25 14:00 05/25/25 14:10 D5w And Lactated Ringers IV 05/28/25 13:59 80 mls/hr .[id number] RICARDO Administration Ondansetron HCl 4 mg 05/24/25 13:27 05/25/25 01:30 Ondansetron Inj 2 Mg/Ml 2 Ml Vial IV 06/23/25 13:26 4 mg Q6H PRN Administration Nausea
--- NOTE | 2025-05-25 15:46 | Psychiatric Progress Note ---
Date of Service May 25, 2025 Impression / Recommendations Impression Patient is a 20-year-old male, with history of schizoaffective disorder bipolar type, and possibly recently initiated on Clozaril and lithium. He is now presenting with psychomotor slowing, confusion, lethargy, recent fall, intention tremor and waxing and waning confusion/disorientation. He also continues to report auditory hallucinations, but that may his baseline given his psychiatric diagnosis. Since at this point we are assuming this is a acute change to his mental status, diagnosis is most consistent with hypoactive delirium, and workup should continue for the cause of the delirium. I recommend full neurologic workup, including a brain MRI and an EEG to rule out CVA and seizure. Cardiac arrhythmia is also possibility, and he remains on telemetry for now. Amesti toxicity is not likely, given his level is 0.2. I do recommend holding all psychiatric meds until we see improvement in his mental status. Although he is on 2 antipsychotics, NMS is not likely since he does not have rigidity, hypertension or fever. It is also possible that this is catatonia associated with his psychotic disorder. Although it is unclear how long he has really been on Clozaril, important to keep in mind that complications from Clozaril treatment can be serious and quite varied, including cardiac (arrhythmias, myocarditis or pericarditis, cardiomyopathy), anticholinergic ( dry mouth, blurred vision, urinary retention, constipation and cognitive dysfunction), GI (toxic megacolon, hepatotoxicity), heme (neutropenia or agranulocytosis, DVT), and metabolic (hyperlipidemia, insulin resistance, increased cardiovascular risk, weight gain). 05/25/25: Patient presentation has not changed much. He continues with minimal responsiveness, fluctuating lethargy, and significant psychomotor retardation. On exam today, he also appeared to have weakness and cogwheeling rigidity. He can follow some commands. At he is at times disoriented at times less so. MRI and CPK were normal today. I agree with hospital medicines plan to obtain a lumbar puncture to rule out encephalitis. I would specifically recommend ruling out autoimmune encephalitis (anti-NMDA). I am also planning on getting records from his past hospitalizations, to clear up what has already been done to workup first break psychosis. Once we have those records, we can fill in any gaps with necessary tests for unusual causes of psychosis. It may also help us understand what how his psychosis has presented over the past 6 months. It is still possible there is at degree of catatonic features here. If we are getting no significant results from the medical workup, it might be worth doing and IV Ativan challenge, to see if it helps clear some of the symptoms. the risks of that would be further sedation, or delirium. However if this because truly is catatonic,, we would see improvement in psychomotor activity and responsiveness. I recommend waiting to do this until after the lumbar puncture. Overall, I spent a total of 65 minutes on this patient's care, including review of chart/records, direct evaluation of the patient, coordination with nursing, interdisciplinary team meeting, and documentation. (1) Delirium: (2) Schizoaffective disorder, bipolar type: Plan 05/25/25: Neurology consultation and lumbar puncture to rule out encephalitis. Consider IV Ativan challenge for catatonia after LP (1 mg 3 times daily) continue to hold psychiatric medication continue one-to-one and suicide risk precautions Requesting records from patient's past hospital stays. 05/24/25: MRI and EEG. Consider neurology consult hold psychiatric medications attempting to gather collateral to clarify patient's recent baseline and lola tment course. Interval History Chief Complaint "[]". Subjective Subjective Patient was seen & assessed and interval progress reviewed with hospitalist and Psychiatric liaison. Hospitalist team reported patient was significantly obtunded this morning, and was minimally responsive even to sternal rub. He also appeared to have some rigidity. CPK was ordered this a.m. and resulted as within normal limits. I evaluated patient at the bedside. He remains on a one-to-one. He was lethargic, but did awaken with some effort. He was responsive to our questions, but continues to give one-word answers. Tremor was not as notable today. He did have significant cogwheeling rigidity, but no leadpipe rigidity. His skin was normal temperature, not warm to touch. He was able to follow commands, but had limited range of motion. He reported feeling weak and this was consistent with my exam. Handgrip was slightly weaker on the right than the left, but this was only modestly different. He said he could not open his eyes wide or open his mouth wide. He was able to lift his legs only about an inch off the bed, and could not lift them at all with if I applied resistance. Today, he was aware he is in a hospital, but believed (understandably) that he was still at the [facility]. He said he could not remember the question the hospital he was at prior to the [facility]. He could also not recall the name of past hospitalization, or his parents phone number. At 1 point, after several questions in a row, he said "stop it." When we did not at first understand, he was able to raise the volume of his voice a little bit. He acknowledged feeling afraid, but did not share anything else about always been feeling emotionally. He did have an MRI of the brain this morning, which resulted as within normal limits. Psychiatric liaison was able to contact his outpatient psychiatrist. Please see her note for full details, but in summary this psychiatrist has been seeing the patient since December 2024. He appeared to have his first hospitalization for psychotic break in November 2024, at [facility] in [place]. Apparently prior to that hospitalization, he was found mid suicide attempt in his basement. Unclear what kind of workup he had at [facility], but he was initiated on Invega Sustenna and lithium at that time. after that was when she first evaluated him. She said that changes to his speech were part of his prese ntation at that point - mumbling and at times indecipherable. He had a second hospitalization to [facility] a few months later, and multiple medications were trialed, including risperidone, Haldol, and ultimately Clozaril. but then, most recently he saw the outpatient psychiatrist, who referred him back to the emergency room and recommended a different hospital. [place], and presumably was bed search to [place]. It is unclear how long he spends at that hospital before his transfer to [place] on Sunday. Physical Exam Psychiatric Orientation: oriented to person Apperance: + disheveled Eye Contact: + poor eye contact Motor Behavior: + psychomotor retardation Speech: + abnormal rate/rhythm/volume of speech Soft in volume, one-word answers Affect: + flat affect mildly irritable edge. Reports anxiety. Thought Process: + thought blocking, + concrete thought process and thought association intact Poverty of thought. Suicidal Thoughts: denies suicidal thoughts, denies suicidal plan and denies suicidal intent Homicidal Thoughts: denies homicidal thoughts, denies homicidal plan and denies homicidal intent Hallucinations: + auditory hallucinations; no visual hallucinations Cognition: + recent memory not intact, + remote memory not intact, + attention not intact and + language not intact Insight: + limited insight Judgment: + limited judgement Vital Signs (Past 24 Hours) Last Vital Signs Temp 36.5 C 05/25/25 14:41 Pulse 79 05/25/25 14:41 Resp 18 05/25/25 14:41 BP 117/67 05/25/25 14:41 Pulse Ox 98 05/25/25 14:41 O2 Del Method Room Air 05/25/25 14:41 Results & Data ([facility]) Laboratory Results Laboratory Results - last 24 hr 05/25/25 05/25/25 05:26 13:47 WBC 5.85 RBC 4.12 L Hgb 12.5 L Hct 37.9 L MCV 92.0 MCH 30.3 MCHC 33.0 RDW Std Deviation 39.5 RDW Coeff of Hannah 11.8 Plt Count 235 MPV 8.4 L Immature Gran % (Auto) 0.5 Neut % (Auto) 52.8 Lymph % (Auto) 31.3 [place] % (Auto) 8.0 Eos % (Auto) 6.5 Baso % (Auto) 0.9 Neut # (Auto) 3.09 Lymph # (Auto) 1.83 [place] # (Auto) 0.47 Eos # (Auto) 0.38 Baso # (Auto) 0.05 Immature Gran # (Auto) 0.03 Sodium 137 Potassium 3.5 Chloride 104 Carbon Dioxide 22 Anion Gap 11 BUN 6 Creatinine 0.60 Est Cr Clr Drug Dosing 199.4 eGFR 139.97 BUN/Creatinine Ratio 10.0 Glucose 62 L POC Glucose 61 L* Calcium 8.6 Magnesium 1.8 Total Creatine Kinase 60 Vitamin B12 482 TSH 0.679 Current Inpatient Medications Current Inpatient Medications: Current Inpatient Medications Enoxaparin Sodium (Enoxaparin Inj 40 Mg/0.4 Ml Syr) 40 mg SQ Q24H RICARDO Stop: 06/23/25 14:59 Last Admin: 05/25/25 14:33 Dose: 40 mg Dextrose/Lactated Ringer's (D5w And Lactated Ringers) 1,000 mls @ 80 mls/hr IV .[id number] RICARDO Stop: 05/28/25 13:59 Last Admin: 05/25/25 14:10 Dose: 80 mls/hr Olanzapine (Olanzapine 10 Mg/2.1 Ml Sdv) 2.5 mg IM Q4H PRN PRN Reason: Agitation Stop: 06/23/25 13:26 Ondansetron HCl (Ondansetron Inj 2 Mg/Ml 2 Ml Vial) 4 mg IV Q6H PRN PRN Reason: Nausea Stop: 06/23/25 13:26 Last Admin: 05/25/25 01:30 Dose: 4 mg Polyethylene Glycol (Polyethylene (Miralax) 17 Gm Pack) 17 gm PO DAILY PRN PRN Reason: Constipation Stop: 06/23/25 13:26
--- NOTE | 2025-05-25 17:37 | Communication Note ---
Date of Service: May 25, 2025 Spoke with both parents today. they state his psychiatric issues including depression, SI and delusions began around covid. They state he has had multiple [facility] admissions over the past few years. Explained patient's current situation. Explained risks and benefits of pursuing LP but parents both agree that this is primarily psych and not neurologic and did not wish to pursue with LP. D/w psych who recommended IV ativan trial
[2025-05-25] MEDS: LORazepam Inj 1 MG in SYRINGE 0.5 ML IV SCH (17:56)
[2025-05-26] MEDS: POTASSIUM CHLORIDE CRTAB 20 MEQ TABCR PO STA (01:10)
[2025-05-26] MEDS: MAGNESIUM SULFATE / D5W 1 GM/100 ML BAG IV ONE (01:10)
[2025-05-26] MEDS: POTASSIUM CHLORIDE 20 MEQ in D5W AND LACTATED RINGERS 1,000 ML IV ONE (01:40)
[2025-05-26 06:02] LABS: Hematocrit (blood only) 38.3 % (42.0-52.0); Hemoglobin 13.4 g/dL (14.0-18.0); Mean Corpuscular Hemoglobin 31.2 pg (25.0-34.0); Mean Corpuscular Volume 89.1 fL (80.0-100.0); Platelet Count 273 K/uL (130-400); RDW Standard Deviation 37.3 fL (36.4-46.3); Red Blood Count 4.30 M/uL (4.70-6.10); White Blood Count 5.62 K/ul (4.8-10.8)
[2025-05-26 06:17] LABS: Alanine Aminotransferase 38.0 U/L (7-52); Albumin Globulin Ratio 1.5 (0.9-2); Albumin Level 4.0 gm/dl (3.4-5.0); Alkaline Phosphatase 72.0 U/L (34-104); Anion Gap 7.0 (3-11); Bilirubin,Total 0.4 mg/dl (0.2-1.0); Blood Urea Nitrogen 7.0 mg/dl (6-23); Calcium 8.8 mg/dl (8.6-10.3); Carbon Dioxide 26.0 mmol/L (21-32); Chloride 104.0 mmol/L (98-107); Creatinine Clr Calc Pharmacy 175.9 ml/min; Globulin 2.6 gm/dl (2.5-4.0); Glucose 113.0 mg/dl (70-99(Fasting)); Potassium 4.0 mmol/L (3.5-5.1); Sodium 137.0 mmol/L (136-145); Total Protein 6.6 gm/dl (6.0-8.3)
--- NOTE | 2025-05-26 12:17 | Hospitalist Progress Note ---
Date of Service May 26, 2025 Assessment & Plan (1) Confusion: Plan: 20-year-old male was admitted to [facility] last night from hospital from [facility] for suicidal ideation. Seems patient was having trouble walking and very tired on arrival to [facility]. Seems he fell over and was confused and was brought to the hospital .As per the jones did not give any more medication than what he is on from the outside hospital. Currently, not able to contact his father. Right now patient is drowsy. And when tried to wake him up he opens his eyes and mumbles and goes back to sleep. Could not get any history from the patient. He is able to move his neck on command freely. Not able get much history from the patient. For the ER he seemed to be oriented to name and followed some commands. #Confusion #Lethargy -Metabolic causes at this point have been ruled out -VBG normal, NH3 normal, TSH normal, B12 normal. -Unclear etiology -D/w Dr Flynn, EEG normal. subclinical status ruled out -Reviewed MRI brain, no acute pathology -Overall low suspicion for [employer] infection given lack of fever, leukocytosis, nuchal rigidity, headache etc -D/w psychiatry, low suspicion for NMS. Afebrile, CK normal, no lead pipe rigidity -D/w parents yesterday, offered to do LP but they declined as they believe this is primarily psych as it has been going on for 4-5 years Plan -Greatly appreciate neuro and psychiatry input -Continue IV ativan trial for hypoactive delirium per psych -Holding home psych regimen -Avoid sedating medications -PRN zyprexa -Sitter for now -Currently NPO until cognition improves. Continue D5 LR DVT prophylaxis Lovenox Disposition Telemetry Full code. I spent a total of 54 minutes coordinating, documenting, and providing care for this patient excluding time spent in the performance of separately billed services. This included personally reviewing all current laboratories and imaging studies, medical reconciliation, outpatient chart review and discussion with specialists Admission and Anticipated Discharge Date Admission Date: May 24, 2025 Subjective lethargic. will follow basic commands. difficult to arouse however. Patient denies CHOWDHURY neck stiffness F/C, CP, palpitations, SOB, dyspnea, abd pain, N/V/D. Physical Exam Physical Exam: Vitals and labs reviewed General: Well appearing, NAD HEENT: EOMI, PERRLA Neck: Supple. no nuchal rigidity Cardiac: RRR no rubs gallops or murmurs Lungs: CTA no rhonchi wheezing or rales Abd: S NT ND BS positive : Deffered MSK: Full ROM. No obvious deformities Ext: No Edema cyanosis Skin: Warm, Dry Neuro: drowsy but improved today follows basic commands. cogwheeling rigidity but no lead pipe rigidity. Psych: calm Results & Data Results & Data Vital Signs (Past 12 Hours) Vital Signs Temp Pulse Pulse Resp BP Pulse Ox O2 Del Method 05/26/25 11:28 36.7 C 97 H 17 117/64 96 Room Air 05/26/25 09:51 91 H 05/26/25 07:50 36.6 C 72 17 106/78 96 Room Air 05/26/25 03:10 36.5 C 113 H 16 119/72 98 Room Air Laboratory Results Abnormal lab results 05/25/25 05/26/25 05/26/25 Range/Units 13:47 01:06 05:39 RBC 4.30 L (4.70-6.10) M/uL Hgb 13.4 L (14.0-18.0) g/dL Hct 38.3 L (42.0-52.0) % MPV 8.4 L (9.4-12.4) fL Glucose 113 H (70-99(Fasting)) mg/dl POC Glucose 61 L* 132 H (70-99) mg/dl
--- NOTE | 2025-05-26 15:03 | Psychiatric Progress Note ---
Date of Service May 26, 2025 Impression / Recommendations Impression Patient is a 20-year-old male, with history of schizoaffective disorder bipolar type, and possibly recently initiated on Clozaril and lithium. He is now presenting with psychomotor slowing, confusion, lethargy, recent fall, intention tremor and waxing and waning confusion/disorientation. He also continues to report auditory hallucinations, but that may his baseline given his psychiatric diagnosis. 05/26/25: Unfortunately, we cannot complete the full medical workup for first break psychosis, since parents did decline lumbar puncture. However, the Ativan challenge seems to be productive. Patient perked up after last night's dose, and then again this morning after the dose around 10 AM. This is good evidence that catatonic features were contributing to his presentation. I recommend continuing the IV Ativan for a full 24 hours. We can attempt to transition to p.o. Ativan tomorrow, monitor for continued improvement. At that point, if he continues to improve and is stable on oral meds, we will need to work with the patient and his family regarding where to continue his psychiatric treatment (whether they would like to return to [place], would be referred elsewhere). Continue to hold clozaril and lithium for now. Overall, I spent a total of 45 minutes on this patient's care, including review of chart/records, direct evaluation of the patient, coordination with nursing, interdisciplinary team meeting, and documentation. (1) Schizophrenia, catatonic: Plan 05/26/25: Continue IV Ativan 1mg TID for today. Tomorrow, change to PO Ativan 1mg TID. Continue to hold clozaril and lithium for now. 05/25/25: Neurology consultation and lumbar puncture to rule out encephalitis. Consider IV Ativan challenge for catatonia after LP (1 mg 3 times daily) continue to hold psychiatric medication continue one-to-one and suicide risk precautions Requesting records from patient's past hospital stays. 05/24/25: MRI and EEG. Consider neurology consult hold psychiatric medications attempting to gather collateral to clarify patient's recent baseline and treatment course. Interval History Identifying Information Clifton Glass is a 20-year-old male who was admitted to [facility] today for altered mental status workup. Consult is by the hospitalist service for lethargy, psychiatric illness, SI. Chief Complaint "[]". Subjective Subjective Patient was seen & assessed and interval progress reviewed with psychiatric liaison and primary nurse. patient's parents were contacted yesterday, and they did not give consent for the lumbar puncture, as they felt patient's presentation is psychiatric. IV Ativan challenge was initiated yesterday, with 1 mg 3 times daily scheduled. Nursing did report that he had been sitting up, was eating and drinking, and oriented last evening. He seemed more lethargic this morning. Ativan was given a little before 10 AM, about an hour before we evaluated the patient. I met with the patient in his room along with the psychiatric liaison nurse. Initially, patient was asleep, and still appeared lethargic after we woke him. However, as the evaluation continue, he became more awake and alert. By the end, he did asked to have the head of his bed sat up, opened his eyes fully for the first time, and was initiating movement (reaching for his water, etc.). He did reveal ongoing paranoia. He says that "this is all a simulation." Said he did not have evidence for that, but believes it to be true. He does feel that people are going to hurt him, but does not know who is specifically. He does continue to hear voices. He denies depression or suicidal thoughts though. He could not say for sure whether the medications have helped. He did feel like Clozaril made him "trip on my clothes." Also acknowledged that it made him feel very tired. Physical Exam Psychiatric Orientation: oriented to person, oriented to place and cooperative Apperance: + disheveled Eye Contact: + fair eye contact Motor Behavior: + psychomotor retardation Speech: + abnormal rate/rhythm/volume of speech Affect: + flat affect Mood: + anxious mood Thought Process: + thought blocking, + concrete thought process and thought association intact Thought Content: + paranoid and + delusions Suicidal Thoughts: denies suicidal thoughts, denies suicidal plan and denies suicidal intent Homicidal Thoughts: denies homicidal thoughts, denies homicidal plan and denies homicidal intent Hallucinations: + auditory hallucinations; no visual hallucinations Cognition: + recent memory not intact, + attention not intact and + language not intact Estimated Intelligence: consistent with education level Insight: + fair insight Judgment: + fair judgement Vital Signs (Past 24 Hours) Last Vital Signs Temp 36.7 C 05/26/25 11:28 Pulse 97 H 05/26/25 11:28 Resp 17 05/26/25 11:28 BP 117/64 05/26/25 11:28 Pulse Ox 96 05/26/25 11:28 O2 Del Method Room Air 05/26/25 11:28 Results & Data ([facility]) Laboratory Results Laboratory Results - last 24 hr 05/25/25 05/26/25 05/26/25 16:11 01:06 05:39 WBC 5.62 RBC 4.30 L Hgb 13.4 L Hct 38.3 L MCV 89.1 MCH 31.2 MCHC 35.0 RDW Std Deviation 37.3 RDW Coeff of Hannah 11.7 Plt Count 273 MPV 8.4 L Sodium 137 Potassium 4.0 Chloride 104 Carbon Dioxide 26 Anion Gap 7 BUN 7 Creatinine 0.68 Est Cr Clr Drug Dosing 175.9 eGFR 134.78 BUN/Creatinine Ratio 10.3 Glucose 113 H POC Glucose 74 132 H Calcium 8.8 Total Bilirubin 0.4 AST 17 ALT 38 Alkaline Phosphatase 72 Total Protein 6.6 Albumin 4.0 Globulin 2.6 Albumin/Globulin Ratio 1.5 Current Inpatient Medications Current Inpatient Medications: Current Inpatient Medications Enoxaparin Sodium (Enoxaparin Inj 40 Mg/0.4 Ml Syr) 40 mg SQ Q24H RICARDO Stop: 06/23/25 14:59 Last Admin: 05/25/25 14:33 Dose: 40 mg Dextrose/Lactated Ringer's (D5w And Lactated Ringers) 1,000 mls @ 80 mls/hr IV .[id number] RICARDO Stop: 05/28/25 13:59 Last Infusion: 05/26/25 01:30 Dose: 0 mls/hr Lorazepam 1 mg/ Syringe 1 mls @ 2 mls/min IV Q8H RICARDO Stop: 06/24/25 17:59 Last Admin: 05/26/25 09:46 Dose: 2 mls/min Olanzapine (Olanzapine 10 Mg/2.1 Ml Sdv) 2.5 mg IM Q4H PRN PRN Reason: Agitation Stop: 06/23/25 13:26 Ondansetron HCl (Ondansetron Inj 2 Mg/Ml 2 Ml Vial) 4 mg IV Q6H PRN PRN Reason: Nausea Stop: 06/23/25 13:26 Last Admin: 05/25/25 01:30 Dose: 4 mg Polyethylene Glycol (Polyethylene (Miralax) 17 Gm Pack) 17 gm PO DAILY PRN PRN Reason: Constipation Stop: 06/23/25 13:26
--- NOTE | 2025-05-26 22:19 | Electrocardiogram Report ---
Test Reason : Blood Pressure : */* mmHG Vent. Rate : 116 BPM Atrial Rate : 116 BPM P-R Int : 136 ms QRS Dur : 88 ms QT Int : 362 ms P-R-T Axes : 72 -59 51 degrees QTcB Int : 503 ms Sinus tachycardia Left axis deviation Nonspecific T wave abnormality Prolonged QT Abnormal ECG When compared with ECG of 24-May-2025 09:20, Incomplete right bundle branch block is no longer Present Confirmed by Luis Ely ([id number]) on 05/26/2025 10:19:00 PM Referred By: NO PCP Confirmed By: Luis Ely
--- NOTE | 2025-05-27 09:21 | Hospitalist Progress Note ---
Date of Service May 27, 2025 Assessment & Plan (1) Confusion: Plan: 20-year-old male was admitted to [facility] last night from hospital from [facility] for suicidal ideation. Seems patient was having trouble walking and very tired on arrival to [facility]. Seems he fell over and was confused and was brought to the hospital .As per the [facility] did not give any more medication than what he is on from the outside hospital. Currently, not able to contact his father. Right now patient is drowsy. And when tried to wake him up he opens his eyes and mumbles and goes back to sleep. Could not get any history from the patient. He is able to move his neck on command freely. Not able get much history from the patient. For the ER he seemed to be oriented to name and followed some commands. #Confusion #Lethargy -Metabolic causes at this point have been ruled out -VBG normal, NH3 normal, TSH normal, B12 normal. -Unclear etiology -EEG has been normal -Reviewed MRI brain, no acute pathology -Overall low suspicion for SECOND OPERATOR infection given lack of fever, leukocytosis, nuchal rigidity, headache etc -D/w psychiatry, low suspicion for NMS. Afebrile, CK normal, no lead pipe rigidity -D/w parents yesterday by the outgoing hospitalist on 05/25/2025, offered to do LP but they declined as they believe this is primarily psych as it has been going on for 4-5 years Plan -Greatly appreciate neuro and psychiatry input -Continue IV ativan trial for hypoactive delirium per psych -Holding home psych regimen -Avoid sedating medications -PRN zyprexa -Sitter for now -Ativan has been changed to 1mg PO TID as per Psyche -Has been eating and drinking reasonably DVT prophylaxis Lovenox Disposition Telemetry Full code. I spent a total of 50 minutes seeing the patient, conversation with him, examination, reviewing medication and charts and documenting management. (2) Schizoaffective disorder, bipolar type: (3) Encephalopathy: (4) Delirium: Admission and Anticipated Discharge Date Admission Date: May 24, 2025 Subjective 05/27/2025 The patient was seen and examined in telemetry unit He has been much better, remains drowsy but conversive Complains to weakness but denies any other significant symptoms Has been eating and drinking reasonably Review of Systems Review of Systems: All systems reviewed and are unremarkable except as noted below Physical Exam Physical Exam: Lying in bed without any acute distress Constitutional: + ill appearing and average body habitus Eyes: PERRL, conjunctivae normal, anicteric sclerae ENMT: external ear and nose normal, oropharynx normal Neck: trachea midline, no thyromegaly Respiratory: no respiratory distress Auscultation: lungs clear to auscultation bilaterally Cardiovascular: Rate/Rhythm: regular rate and regular rhythm; not tachycardic Heart Sounds: normal S1 and normal S2; no murmur Extremities: no edema Gastrointestinal (Abdomen): Inspection/Auscultation: normal bowel sounds; abdomen not distended Percussion/Palpation: abdomen soft; abdomen nontender Musculoskeletal: No acute arthritis involving any of the joint Neurologic: normal touch/pain/proprioception, moves all extremities and awake Remains weak and drowsy Lymphatic: no cervical or axillary lymphadenopathy Results & Data Results & Data Vital Signs (Past 12 Hours) Vital Signs Temp Pulse Pulse Resp BP Pulse Ox O2 Del Method 05/27/25 02:26 36.6 C 76 14 114/64 95 Room Air 05/26/25 22:41 36.6 C 91 H 16 114/75 96 Room Air 05/26/25 21:37 80 Medications Administered Current Inpatient Medications Enoxaparin Sodium (Enoxaparin Inj 40 Mg/0.4 Ml Syr) 40 mg SQ Q24H RICARDO Stop: 06/23/25 14:59 Last Admin: 05/26/25 15:10 Dose: 40 mg Dextrose/Lactated Ringer's (D5w And Lactated Ringers) 1,000 mls @ 80 mls/hr IV .[id number] RICARDO Stop: 05/28/25 13:59 Last Infusion: 05/26/25 01:30 Dose: 0 mls/hr Lorazepam (Lorazepam 1 Mg Tab) 1 mg PO TID RICARDO Stop: 06/26/25 13:59 Olanzapine (Olanzapine 10 Mg/2.1 Ml Sdv) 2.5 mg IM Q4H PRN PRN Reason: Agitation Stop: 06/23/25 13:26 Ondansetron HCl (Ondansetron Inj 2 Mg/Ml 2 Ml Vial) 4 mg IV Q6H PRN PRN Reason: Nausea Stop: 06/23/25 13:26 Last Admin: 05/26/25 17:10 Dose: 4 mg Polyethylene Glycol (Polyethylene (Miralax) 17 Gm Pack) 17 gm PO DAILY PRN PRN Reason: Constipation Stop: 06/23/25 13:26
[2025-05-27] MEDS: LORazepam 1 MG TAB PO STA (10:06)
--- NOTE | 2025-05-27 11:49 | Psychiatric Progress Note ---
Date of Service May 27, 2025 Impression / Recommendations Impression Patient is a 20-year-old male, with history of schizoaffective disorder bipolar type, and possibly recently initiated on Clozaril and lithium. He is now presenting with psychomotor slowing, confusion, lethargy, recent fall, intention tremor and waxing and waning confusion/disorientation. He also continues to report auditory hallucinations, but that may his baseline given his psychiatric diagnosis. 05/27/25: Transitioning to p.o. Ativan today, monitoring for continued improvement. Encouraged patient to be as active as possible during the day. I would encourage his one-to-one to help him walk around the unit at least once today, if not several times. If there is any concern for weakness, since he has been pretty much confined to his bed for several days, may want to consider a PT consult. If things go well today, I would recommend restarting lithium tomorrow. Clozaril should remain discontinued. Once patient is ambulating, eating regularly, and able to urinate on his own, we can pursue transition back to a psychiatric unit. will need to involve case management at that point. Overall, I spent a total of 45 minutes on this patient's care, including review of chart/records, direct evaluation of the patient, coordination with nursing, interdisciplinary team meeting, and documentation. (1) Schizophrenia, catatonic: Plan 05/27/25: P.o. Ativan 1 mg 3 times daily today. Restart lithium ER 450 twice daily tomorrow. Continue one-to-one and suicide risk precautions 05/26/25: Continue IV Ativan 1mg TID for today. Tomorrow, change to PO Ativan 1mg TID. Continue to hold clozaril and lithium for now. continue one-to-one and suicide risk precautions 05/25/25: Neurology consultation and lumbar puncture to rule out encephalitis. Consider IV Ativan challenge for catatonia after LP (1 mg 3 times daily) continue to hold psychiatric medication continue one-to-one and suicide risk precautions Requesting records from patient's past hospital stays. 05/24/25: MRI and EEG. Consider neurology consult hold psychiatric medications attempting to gather collateral to clarify patient's recent baseline and treatment course. Interval History Identifying Information Clifton Glass is a 20-year-old male who was admitted to [facility] today for altered mental status workup. Consult is by the hospitalist service for lethargy, psychiatric illness, SI. Chief Complaint " More anxious". Subjective Subjective Patient was seen & assessed and interval progress reviewed with Psychiatric liaison and floor nurse. Nursing notes indicate patient was more alert and slightly more active yesterday. May have ambulated in the hallway. He did eat. He used the restroom. He currently has a condom catheter. He did allow hygiene care. He talked to his mom as well. Ativan orders were changed to p.o., but her morning dose was delayed until after 10 AM. This morning, he was more lethargic and less alert. I met with patient in his room along with the psychiatric liaison. He did awaken to speak with us. He says that he is more anxious today. He is continu ing to have auditory hallucinations. He denied depression. He could not fully recall whether he talked to his mother yesterday, or how that went. When I encouraged him to be as active as possible today, he did sit up on his own. He was more awake, making eye contact by the end of the encounter. Speech was still soft, with short responses. I encouraged patient to prioritize 3 goals and he was able to repeat them back to me: eat his meals, sit up and stay as awake as possible, and walk the halls. Discussed restarting his lithium, and he did say it was helpful for him in the past. Physical Exam Psychiatric Orientation: oriented to person, oriented to place and cooperative Apperance: + disheveled Eye Contact: + poor eye contact Motor Behavior: + psychomotor retardation no notable tremor today. Still some cogwheeling, but less severe compared to earlier in his stay. Speech: + abnormal rate/rhythm/volume of speech Affect: + flat affect Mood: + anxious mood Thought Process: + thought blocking and thought association intact Thought Content: + paranoid and + delusions Suicidal Thoughts: denies suicidal thoughts, denies suicidal plan and denies suicidal intent Homicidal Thoughts: denies homicidal thoughts, denies homicidal plan and denies homicidal intent Hallucinations: + auditory hallucinations; no visual hallucinations Cognition: + language not intact Estimated Intelligence: consistent with education level Insight: + limited insight Judgment: + limited judgement Vital Signs (Past 24 Hours) Last Vital Signs Temp 36.6 C 05/27/25 02:26 Pulse 86 05/27/25 10:11 Resp 20 05/27/25 10:11 BP 110/71 05/27/25 10:11 Pulse Ox 96 05/27/25 10:11 O2 Del Method Room Air 05/27/25 10:11 Results & Data ([facility]) Current Inpatient Medications Current Inpatient Medications: Current Inpatient Medications Enoxaparin Sodium (Enoxaparin Inj 40 Mg/0.4 Ml Syr) 40 mg SQ Q24H RICARDO Stop: 06/23/25 14:59 Last Admin: 05/26/25 15:10 Dose: 40 mg Dextrose/Lactated Ringer's (D5w And Lactated Ringers) 1,000 mls @ 80 mls/hr IV .[id number] RICARDO Stop: 05/28/25 13:59 Last Infusion: 05/27/25 09:48 Dose: Infused Lorazepam (Lorazepam 1 Mg Tab) 1 mg PO TID RICARDO Stop: 06/26/25 13:59 Olanzapine (Olanzapine 10 Mg/2.1 Ml Sdv) 2.5 mg IM Q4H PRN PRN Reason: Agitation Stop: 06/23/25 13:26 Ondansetron HCl (Ondansetron Inj 2 Mg/Ml 2 Ml Vial) 4 mg IV Q6H PRN PRN Reason: Nausea Stop: 06/23/25 13:26 Last Admin: 05/26/25 17:10 Dose: 4 mg Polyethylene Glycol (Polyethylene (Miralax) 17 Gm Pack) 17 gm PO DAILY PRN PRN Reason: Constipation Stop: 06/23/25 13:26
[2025-05-27] MEDS: LORazepam 1 MG TAB PO SCH (13:17)
[2025-05-28] MEDS: LITHIUM CARBONATE 450 MG TABCR PO SCH (08:48)
--- NOTE | 2025-05-28 13:44 | Hospitalist Progress Note ---
Date of Service May 28, 2025 Assessment & Plan (1) Confusion: Plan: 20-year-old male was admitted to [facility] last night from hospital from [facility] for suicidal ideation. Seems patient was having trouble walking and very tired on arrival to [facility]. Seems he fell over and was confused and was brought to the hospital .As per the [facility] did not give any more medication than what he is on from the outside hospital. Currently, not able to contact his father. Right now patient is drowsy. And when tried to wake him up he opens his eyes and mumbles and goes back to sleep. Could not get any history from the patient. He is able to move his neck on command freely. Not able get much history from the patient. For the ER he seemed to be oriented to name and followed some commands. #Confusion #Lethargy -Metabolic causes at this point have been ruled out -VBG normal, NH3 normal, TSH normal, B12 normal. -Unclear etiology -EEG has been normal -Reviewed MRI brain, no acute pathology -Overall low suspicion for MACHINE REBUILDER infection given lack of fever, leukocytosis, nuchal rigidity, headache etc -D/w psychiatry, low suspicion for NMS. Afebrile, CK normal, no lead pipe rigidity -D/w parents yesterday by the outgoing hospitalist on 05/25/2025, offered to do LP but they declined as they believe this is primarily psych as it has been going on for 4-5 years Plan -Greatly appreciate neuro and psychiatry input -Continue IV ativan trial for hypoactive delirium per psych -Holding home psych regimen -Avoid sedating medications -PRN zyprexa -Sitter for now -Ativan has been changed to 1mg PO TID as per Psyche -Has been eating and drinking reasonably Clinically much better but remains drowsy and weak Started on lithium for 40 mg twice daily from today Will get PT and OT evaluation DVT prophylaxis Lovenox Disposition Telemetry Full code. I spent a total of 37 minutes seeing the patient, conversation with him, examination, reviewing medication and charts and documenting management. (2) Schizoaffective disorder, bipolar type: Plan: Has been getting medications as per psychiatrist (3) Encephalopathy: (4) Delirium: Admission and Anticipated Discharge Date Admission Date: May 24, 2025 Subjective 05/27/2025 The patient was seen and examined in telemetry unit He has been much better, remains drowsy but conversive Complains to weakness but denies any other significant symptoms Has been eating and drinking reasonably 05/28/2025 The patient was seen and examined in telemetry unit He remains weak and drowsy but otherwise no apparent distress Communicating normally but slowly and softly Review of Systems Review of Systems: All systems reviewed and are unremarkable except as noted below Physical Exam Physical Exam: Lying in bed without any acute distress Constitutional: + ill appearing and average body habitus Eyes: PERRL, conjunctivae normal, anicteric sclerae ENMT: external ear and nose normal, oropharynx normal Neck: trachea midline, no thyromegaly Respiratory: no respiratory distress Auscultation: lungs clear to auscultation bilaterally Cardiovascular: Rate/Rhythm: regular rate and regular rhythm; not tachycardic Heart Sounds: normal S1 and normal S2; no murmur Extremities: no edema Gastrointestinal (Abdomen): Inspection/Auscultation: normal bowel sounds; abd omen not distended Percussion/Palpation: abdomen soft; abdomen nontender Neurologic: normal touch/pain/proprioception, moves all extremities and awake Lymphatic: no cervical or axillary lymphadenopathy Results & Data Results & Data Vital Signs (Past 12 Hours) Vital Signs Temp Pulse Pulse Resp BP Pulse Ox O2 Del Method 05/28/25 10:57 36.4 C L 85 21 113/56 L 96 Room Air 05/28/25 10:23 72 05/28/25 08:50 Room Air 05/28/25 06:56 36.4 C L 86 21 100/62 96 Room Air Medications Administered Current Inpatient Medications Enoxaparin Sodium (Enoxaparin Inj 40 Mg/0.4 Ml Syr) 40 mg SQ Q24H RICARDO Stop: 06/23/25 14:59 Last Admin: 05/27/25 15:02 Dose: 40 mg Dextrose/Lactated Ringer's (D5w And Lactated Ringers) 1,000 mls @ 80 mls/hr IV .[id number] RICARDO Stop: 05/28/25 13:59 Last Infusion: 05/27/25 09:48 Dose: Infused [place] Carbonate ([place] Carbonate 450 Mg Tabcr) 450 mg PO BID RICARDO Stop: 06/27/25 08:59 Last Admin: 05/28/25 08:48 Dose: 450 mg Lorazepam (Lorazepam 1 Mg Tab) 1 mg PO TID RICARDO Stop: 06/26/25 13:59 Last Admin: 05/28/25 13:02 Dose: 1 mg Olanzapine (Olanzapine 10 Mg/2.1 Ml Sdv) 2.5 mg IM Q4H PRN PRN Reason: Agitation Stop: 06/23/25 13:26 Ondansetron HCl (Ondansetron Inj 2 Mg/Ml 2 Ml Vial) 4 mg IV Q6H PRN PRN Reason: Nausea Stop: 06/23/25 13:26 Last Admin: 05/28/25 13:02 Dose: 4 mg Polyethylene Glycol (Polyethylene (Miralax) 17 Gm Pack) 17 gm PO DAILY PRN PRN Reason: Constipation Stop: 06/23/25 13:26 Oh
--- NOTE | 2025-05-28 15:03 | Psychiatric Progress Note ---
Date of Service May 28, 2025 Impression / Recommendations Impression Patient is a 20-year-old male, with history of schizoaffective disorder bipolar type, and possibly recently initiated on Clozaril and lithium. He is now presenting with psychomotor slowing, confusion, lethargy, recent fall, intention tremor and waxing and waning confusion/disorientation. He also continues to report auditory hallucinations, but that may his baseline given his psychiatric diagnosis. 05/27/25: Continue to encourage nursing/the one-to-one to help patient remain as active and independent as possible. Encouraged him to sit up, reach for items that he needs or wants. Also encouraged ambulating in the hallway and to the bathroom. Please keep room lights on during the day and turned off at night. Attempting to engage the patient in conversation would also be a good idea. Psych liaison is going to look for some fidgets or therapy putty, or books for the patient to occupy some of his time. Please attempt to redirect patient if he is noted to be pulling out his hair. Do recommend increasing p.o. Ativan to 1 mg 4 times daily. Thayne was also started today If patient is still here in 3 days, we should get a level lithium level and a BMP. Clozaril s hould remain discontinued. Once patient is ambulating, eating regularly, and able to urinate on his own, we can pursue transition back to a psychiatric unit. will need to involve case management at that point. Overall, I spent a total of 35 minutes on this patient's care, including review of chart/records, direct evaluation of the patient, coordination with nursing, interdisciplinary team meeting, and documentation. (1) Schizophrenia, catatonic: Plan 05/28/25: encouraged behavioral activation and ambulation when possible increase p.o. Ativan to 1 mg 4 times daily obtain lithium level and BMP on Sunday morning if patient is still admitted. Continue one-to-one suicide risk precautions. 05/27/25: P.o. Ativan 1 mg 3 times daily today. Restart lithium ER 450 twice daily tomorrow. Continue one-to-one and suicide risk precautions 05/26/25: Continue IV Ativan 1mg TID for today. Tomorrow, change to PO Ativan 1mg TID. Continue to hold clozaril and lithium for now. continue one-to-one and suicide risk precautions 05/25/25: Neurology consultation and lumbar puncture to rule out encephalitis. Consider IV Ativan challenge for catatonia after LP (1 mg 3 times daily) continue to hold psychiatric medication continue one-to-one and suicide risk precautions Requesting records from patient's past hospital stays. 05/24/25: MRI and EEG. Consider neurology consult hold psychiatric medications attempting to gather collateral to clarify patient's recent baseline and treatment course. Interval History Identifying Information Clifton Glass is a 20-year-old male who was admitted to [facility] today for altered mental status workup. Consult is by the hospitalist service for lethargy, psychiatric illness, SI. Chief Complaint "[]". Subjective Subjective Patient was seen & assessed and interval progress reviewed with psychiatric liaison. per review of the chart, patient slept well overnight. He took a walk this morning. He has had cough and hiccups. Staff has noted that he is pulling out his hair. I met with the patient in his room along with the psychiatric liaison. He said he is not interested in watching TV or doing activities because he is "too tired". he says he does feel less tired after he gets Ativan. When we saw him, it was about 12:30 PM, and he had gotten Ativan last around 9 AM. He continues hearing auditory hallucinations, but could not tell me what they were saying to him. He says anxiety is little better. Continues to deny depression and SI. He acknowledged he is pulling out his hair because "I think it makes him feel better." Discussed that he needs other things to do with his hands and to distract him from the voices and paranoid thoughts. He says he likes to read, specifically Mr. Bush. He was agreeable to take another walk today, and allow nursing to help him clean up. He was coughing and hiccuping during the encounter. I asked if he had acid reflux or heartburn, and he said no but that certain foods bother him. Identified only Rashard beans as a problematic food, which is actually an allergy. Physical Exam Psychiatric Orientation: oriented to person, oriented to place and cooperative Apperance: + disheveled Eye Contact: + poor eye contact Motor Behavior: + psychomotor retardation Speech: + abnormal rate/rhythm/volume of speech Affect: + flat affect Thought Process: + thought blocking and thought association intact Thought Content: + paranoid and + delusions Suicidal Thoughts: denies suicidal thoughts, denies suicidal plan and denies suicidal intent Homicidal Thoughts: denies homicidal thoughts, denies homicidal plan and denies homicidal intent Hallucinations: + auditory hallucinations; no visual hallucinations Cognition: + recent memory not intact, + remote memory not intact, + attention not intact and + language not intact Estimated Intelligence: consistent with education level Insight: + limited insight Judgment: + limited judgement Vital Signs (Past 24 Hours) Last Vital Signs Temp 36.4 C L 05/28/25 10:57 Pulse 85 05/28/25 10:57 Resp 21 05/28/25 10:57 BP 113/56 L 05/28/25 10:57 Pulse Ox 96 05/28/25 10:57 O2 Del Method Room Air 05/28/25 10:57 Results & Data ([facility]) Current Inpatient Medications Current Inpatient Medications: Current Inpatient Medications Enoxaparin Sodium (Enoxaparin Inj 40 Mg/0.4 Ml Syr) 40 mg SQ Q24H RICARDO Stop: 06/23/25 14:59 Last Admin: 05/27/25 15:02 Dose: 40 mg [place] Carbonate ([place] Carbonate 450 Mg Tabcr) 450 mg PO BID RICARDO Stop: 06/27/25 08:59 Last Admin: 05/28/25 08:48 Dose: 450 mg Lorazepam (Lorazepam 1 Mg Tab) 1 mg PO TID RICARDO Stop: 06/26/25 13:59 Last Admin: 05/28/25 13:02 Dose: 1 mg Olanzapine (Olanzapine 10 Mg/2.1 Ml Sdv) 2.5 mg IM Q4H PRN PRN Reason: Agitation Stop: 06/23/25 13:26 Ondansetron HCl (Ondansetron Inj 2 Mg/Ml 2 Ml Vial) 4 mg IV Q6H PRN PRN Reason: Nausea Stop: 06/23/25 13:26 Last Admin: 05/28/25 13:02 Dose: 4 mg Polyethylene Glycol (Polyethylene (Miralax) 17 Gm Pack) 17 gm PO DAILY PRN PRN Reason: Constipation Stop: 06/23/25 13:26
[2025-05-29] MEDS: CALCIUM CARBONATE 500 MG CHEWABLE TAB PO PRN (00:48)
[2025-05-29 10:25] LABS: Hematocrit (blood only) 41.7 % (42.0-52.0); Hemoglobin 14.1 g/dL (14.0-18.0); Immature Granulocytes # (auto) 0.05 K/uL (0.01-0.20); Immature Granulocytes % (auto) 0.4 %; Mean Corpuscular Hemoglobin 30.7 pg (25.0-34.0); Mean Corpuscular Volume 90.8 fL (80.0-100.0); Platelet Count 269 K/uL (130-400); RDW Standard Deviation 38.5 fL (36.4-46.3); Red Blood Count 4.59 M/uL (4.70-6.10); White Blood Count 12.31 K/ul (4.8-10.8)
[2025-05-29 10:42] LABS: Anion Gap 7.0 (3-11); Blood Urea Nitrogen 10.0 mg/dl (6-23); Calcium 10.0 mg/dl (8.6-10.3); Carbon Dioxide 30.0 mmol/L (21-32); Chloride 102.0 mmol/L (98-107); Creatinine Clr Calc Pharmacy 126.9 ml/min; Glucose 105.0 mg/dl (70-99(Fasting)); Magnesium 1.9 mg/dl (1.7-2.4); Potassium 3.7 mmol/L (3.5-5.1); Sodium 139.0 mmol/L (136-145)
[2025-05-29] MEDS: LORazepam 1 MG TAB PO SCH (13:15)
--- NOTE | 2025-05-29 14:48 | Hospitalist Progress Note ---
Date of Service May 29, 2025 Assessment & Plan (1) Confusion: Plan: 20-year-old male was admitted to [facility] last night from hospital from [facility] for suicidal ideation. Seems patient was having trouble walking and very tired on arrival to [facility]. Seems he fell over and was confused and was brought to the hospital .As per the [facility] did not give any more medication than what he is on from the outside hospital. Currently, not able to contact his father. Right now patient is drowsy. And when tried to wake him up he opens his eyes and mumbles and goes back to sleep. Could not get any history from the patient. He is able to move his neck on command freely. Not able get much history from the patient. For the ER he seemed to be oriented to name and followed some commands. #Confusion #Lethargy -Metabolic causes at this point have been ruled out -VBG normal, NH3 normal, TSH normal, B12 normal. 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 Afebrile, CK normal, no lead pipe rigidity -D/w parents yesterday by the outgoing hospitalist on 05/25/2025, offered to do LP but they declined as they believe this is primarily psych as it has been going on for 4-5 years - He has been communicating with his parents Plan -Greatly appreciate neuro and psychiatry input -Continue IV ativan trial for hypoactive delirium per psych -Holding home psych regimen -Avoid sedating medications -PRN zyprexa -Sitter for now -Ativan has been changed to 1mg PO TID as per Psyche- increased to 1 mg 4 times daily as per psychiatrist on 05/29/2025 -Has been eating and drinking reasonably Clinically much better but remains drowsy and weak Started on lithium for 450 mg twice daily Remains hemodynamically stable without any acute distress He has had physical therapy and did very well with that He remains medically stable to be discharged DVT prophylaxis Lovenox Disposition Telemetry Full code. I spent a total of 37 minutes seeing the patient, conversation with him, examination, reviewing medication and charts and documenting management. (2) Schizoaffective disorder, bipolar type: Plan: Has been getting medications as per psychiatrist (3) Encephalopathy: (4) Delirium: Admission and Anticipated Discharge Date Admission Date: May 24, 2025 Subjective 05/27/2025 The patient was seen and examined in telemetry unit He has been much better, remains drowsy but conversive Complains to weakness but denies any other significant symptoms Has been eating and drinking reasonably 05/28/2025 The patient was seen and examined in telemetry unit He remains weak and drowsy but otherwise no apparent distress Communicating normally but slowly and softly 05/29/2025 The patient was seen and examined in telemetry unit He has been hemodynamically stable Remains slow to respond to any vocal commands and generally weak He has been eating and drinking well and has had physical therapy and did very well with that Review of Systems Review of Systems: All systems reviewed and are unremarkable except as noted below Physical Exam Physical Exam: Lying in bed without any acute distress Constitutional: + ill appearing and average body habitus Eyes: PERRL, conjunctivae normal, anicteric sclerae ENMT: external ear and nose normal, oropharynx normal Neck: trachea midline, no thyromegaly Respiratory: no respiratory distress Auscultation: lungs clear to auscultation bilaterally Cardiovascular: Rate/Rhythm: regular rate and regular rhythm; not tachycardic Heart Sounds: normal S1 and normal S2; no murmur Extremities: no edema Gastrointestinal (Abdomen): Inspection/Auscultation: normal bowel sounds; abdomen not distended Percussion/Palpation: abdomen soft; abdomen nontender Neurologic: normal touch/pain/proprioception, moves all extremities and awake Lymphatic: no cervical or axillary lymphadenopathy Results & Data Results & Data Vital Signs (Past 12 Hours) Vital Signs Temp Pulse Resp BP BP Pulse Ox O2 Del Method 05/29/25 11:26 36.8 C 116 H 17 112/74 95 Room Air 05/29/25 08:15 36.4 C L 93 H 16 110/73 94 Room Air 05/29/25 03:12 36.9 C 82 18 102/64 95 Room Air Laboratory Results Labs reviewed. Short CBC 05/29/25 Range/Units 09:59 WBC 12.31 H (4.8-10.8) K/ul Hgb 14.1 (14.0-18.0) g/dL Hct 41.7 L (42.0-52.0) % Plt Count 269 (130-400) K/uL BMP 05/29/25 09:59 Sodium 139 Potassium 3.7 Chloride 102 Carbon Dioxide 30 BUN 10 Creatinine 0.93 Glucose 105 H Calcium 10.0 Medications Administered Current Inpatient Medications Calcium Carbonate (Calcium Carbonate 500 Mg Chewable Tab) 500 mg PO BID PRN PRN Reason: Heartburn Stop: 06/28/25 00:40 Last Admin: 05/29/25 00:48 Dose: 500 mg Enoxaparin Sodium (Enoxaparin Inj 40 Mg/0.4 Ml Syr) 40 mg SQ Q24H [facility]ICARD[facility] Stop: 06/23/25 14:59 Last Admin: 05/28/25 14:55 Dose: 40 mg [place] Carbonate ([place] Carbonate 450 Mg Tabcr) 450 mg PO BID [facility] Stop: 06/27/25 08:59 Last Admin: 05/29/25 08:10 Dose: 450 mg Lorazepam (Lorazepam 1 Mg Tab) 1 mg PO QID [facility]ICARDO Stop: 06/28/25 12:59 Last Admin: 05/29/25 13:15 Dose: 1 mg Olanzapine (Olanzapine 10 Mg/2.1 Ml Sdv) 2.5 mg IM Q4H PRN PRN Reason: Agitation Stop: 06/23/25 13:26 Ondansetron HCl (Ondansetron Inj 2 Mg/Ml 2 Ml Vial) 4 mg IV Q6H PRN PRN Reason: Nausea Stop: 06/23/25 13:26 Last Admin: 05/28/25 13:02 Dose: 4 mg Polyethylene Glycol (Polyethylene (Miralax) 17 Gm Pack) 17 gm PO DAILY PRN PRN Reason: Constipation Stop: 06/23/25 13:26 Oh
[2025-05-29 15:18] VITALS: BP 109/66; PULSE 90; RESP 20; TEMP 97.9; O2SAT 97
--- NOTE | 2025-05-29 16:01 | Psychiatric Progress Note ---
Date of Service May 29, 2025 Impression / Recommendations Impression Patient is a 20-year-old male, with history of schizoaffective disorder bipolar type, and possibly recently initiated on Clozaril and lithium. He is now presenting with psychomotor slowing, confusion, lethargy, recent fall, intention tremor and waxing and waning confusion/disorientation. He also continues to report auditory hallucinations, but that may his baseline given his psychiatric diagnosis. 05/27/25: patient is experiencing significant improvement. He has been much more active today. Of note, this improvement has continued despite Ativan not being increased to 4 times daily until today (so he only received the 3 doses total yesterday). He still has significant negative symptoms, but is reporting fewer positive symptoms. Chronic delusions are also still present. He still remains pretty disheveled, although he apparently did bathe earlier on his own. He still needs prompting and encouragement to initiate self-care tasks, but can complete them on his own. He has also been medically cleared. I do recommend a continued psychiatric admission for the patient, to ensure that he remains stable, and is taking better care of himself before discharging to home, especially since he has had multiple repeated admissions this past 6 months. Patient is to call his mother, and psychiatric liaison will check in with him about where he would like to be referred for further psychiatric stabilization. We will be initiating that process today. From a medication standpoint, I do recommend continuing meds as scheduled. If he happens to be here on Sunday, I w ould recommend checking lithium level. Overall, I spent a total of 40 minutes on this patient's care, including review of chart/records, direct evaluation of the patient, coordination with nursing, interdisciplinary team meeting, and documentation. (1) Schizophrenia, catatonic: Plan 05/29/25: Continue meds at current doses. Medically cleared - we will proceed with transfer to a psychiatric unit. Our unit here is out of network. 05/28/25: encouraged behavioral activation and ambulation when possible increase p.o. Ativan to 1 mg 4 times daily obtain lithium level and BMP on Sunday morning if patient is still admitted. Continue one-to-one suicide risk precautions. 05/27/25: P.o. Ativan 1 mg 3 times daily today. Restart lithium ER 450 twice daily tomorrow. Continue one-to-one and suicide risk precautions 05/26/25: Continue IV Ativan 1mg TID for today. Tomorrow, change to PO Ativan 1mg TID. Continue to hold clozaril and lithium for now. continue one-to-one and suicide risk precautions 05/25/25: Neurology consultation and lumbar puncture to rule out encephalitis. Consider IV Ativan challenge for catatonia after LP (1 mg 3 times daily) continue to hold psychiatric medication continue one-to-one and suicide risk precautions Requesting records from patient's past hospital stays. 05/24/25: MRI and EEG. Consider neurology consult hold psychiatric medications attempting to gather collateral to clarify patient's recent baseline and treatment course. Interval History Identifying Information Clifton Glass is a 20-year-old male who was admitted to [facility] today for altered mental status workup. Consult is by the hospitalist service for lethargy, psychiatric illness, SI. Chief Complaint " I am okay". Subjective Subjective Patient was seen & assessed and interval progress reviewed with psychiatric liaison and floor nurse, as well as one-to-one. This a.m., patient has walked the halls independently multiple times. He also was able to ambulate to the bathroom, and catheter has been discontinued. He last had a bowel movement yesterday. He has been eating and drinking appropriately, and accepting medications. I met with the patient in his room along with the psychiatric liaison. He said he is not feeling anxious or depressed today. At first he said auditory hallucinations were improving, and then later said that they were not present at that moment. He denies suicidal ideation. He continues to have poverty of thought, and sometimes delayed in response. He is still quite blunted/flat in affect. He lies very still, with minimal movement until he is encouraged to sit up or wants to get his drink. He is not tremulous today. Spoke with him about returning to psychiatric unit, and his preferences. He said he would like to go closer to home if possible. He also said his mother wanted him to call before any major decisions were made. He did just speak with her yesterday as well. Physical Exam Psychiatric Orientation: oriented to person, oriented to place and cooperative Apperance: + disheveled Eye Contact: + fair eye contact Motor Behavior: + psychomotor retardation no tremor today Still short answers, and minimal prosody. However, speaking in full sentences now with less stuttering Affect: + flat affect mood described as overall euthymic. Thought Process: goal directed thought process, clear/coherent thought process and thought association intact Thought Content: + paranoid and + delusions Ongoing paranoid delusions about experiences being a "simulation" Suicidal Thoughts: denies suicidal thoughts, denies suicidal plan and denies suicidal intent Homicidal Thoughts: denies homicidal thoughts, denies homicidal plan and denies homicidal intent Hallucinations: no visual hallucinations Cognition: + recent memory not intact Estimated Intelligence: consistent with education level Insight: + fair insight Judgment: + fair judgement Vital Signs (Past 24 Hours) Last Vital Signs Temp 36.6 C 05/29/25 15:17 Pulse 90 05/29/25 15:17 Resp 20 05/29/25 15:17 BP 109/66 05/29/25 15:17 Pulse Ox 97 05/29/25 15:17 O2 Del Method Room Air 05/29/25 15:17 Results & Data ([facility]) Laboratory Results Laboratory Results - last 24 hr 05/29/25 09:59 WBC 12.31 H RBC 4.59 L Hgb 14.1 Hct 41.7 L MCV 90.8 MCH 30.7 MCHC 33.8 RDW Std Deviation 38.5 RDW Coeff of Hannah 11.7 Plt Count 269 MPV 8.5 L Immature Gran % (Auto) 0.4 Neut % (Auto) 74.9 Lymph % (Auto) 12.8 Real % (Auto) 8.3 Eos % (Auto) 3.2 Baso % (Auto) 0.4 Neut # (Auto) 9.22 H Lymph # (Auto) 1.57 Real # (Auto) 1.02 H Eos # (Auto) 0.40 Baso # (Auto) 0.05 Immature Gran # (Auto) 0.05 Sodium 139 Potassium 3.7 Chloride 102 Carbon Dioxide 30 Anion Gap 7 BUN 10 Creatinine 0.93 Est Cr Clr Drug Dosing 126.9 eGFR 119.06 BUN/Creatinine Ratio 10.8 Glucose 105 H Calcium 10.0 Phosphorus 3.8 Magnesium 1.9 Current Inpatient Medications Current Inpatient Medications: Current Inpatient Medications Calcium Carbonate (Calcium Carbonate 500 Mg Chewable Tab) 500 mg PO BID PRN PRN Reason: Heartburn Stop: 06/28/25 00:40 Last Admin: 05/29/25 00:48 Dose: 500 mg Enoxaparin Sodium (Enoxaparin Inj 40 Mg/0.4 Ml Syr) 40 mg SQ Q24H [facility] Stop: 06/23/25 14:59 Last Admin: 05/29/25 15:37 Dose: 40 mg [employer] Carbonate ([employer] Carbonate 450 Mg Tabcr) 450 mg PO BID [facility] Stop: 06/27/25 08:59 Last Admin: 05/29/25 08:10 Dose: 450 mg Lorazepam (Lorazepam 1 Mg Tab) 1 mg PO QID [facility] Stop: 06/28/25 12:59 Last Admin: 05/29/25 13:15 Dose: 1 mg Olanzapine (Olanzapine 10 Mg/2.1 Ml Sdv) 2.5 mg IM Q4H PRN PRN Reason: Agitation Stop: 06/23/25 13:26 Ondansetron HCl (Ondansetron Inj 2 Mg/Ml 2 Ml Vial) 4 mg IV Q6H PRN PRN Reason: Nausea Stop: 06/23/25 13:26 Last Admin: 05/28/25 13:02 Dose: 4 mg Polyethylene Glycol (Polyethylene (Miralax) 17 Gm Pack) 17 gm PO DAILY PRN PRN Reason: Constipation Stop: 06/23/25 13:26
--- NOTE | 2025-05-30 07:37 | Discharge Summary ---
Date of Service May 30, 2025 Admission HPI Per Admitting Provider 20-year-old male was admitted to [facility] last night from hospital from [facility] for suicidal ideation. Seems patient was having trouble walking and very tired on arrival to [facility]. Seems he fell over and was confused and was brought to the hospital .As per the karen did not give any more medication than what he is on from the outside hospital. Currently, not able to contact his father. Right now patient is drowsy. And when tried to wake him up he opens his eyes and mumbles and goes back to sleep. Could not get any history from the patient. He is able to move his neck on command freely. Not able get much history from the patient. For the ER he seemed to be oriented to name and followed some commands. Past medical history. Unknown at this time. Past surgical history. Unknown at this time. Family history. Unknown at this time. Admission Exam Per Admitting Provider Physical Exam: General- Drowsy Head- atraumatic Eyes- difficult to open eyes Neck- supple, no JVD. Lungs- clear to auscultation no wheezing or crackles Heart- regular rhythm;tachycardia, no murmur, no gallop. Abdomen- normal bowel sounds, soft, no distension Extremities- no pretibial edema, no erythema seen Neuro- drowsy, on calling opens eyes and mumbles,not obeying commands Principal Diagnosis Catatonic schizophrenia, lethargy Discharge Exam Lying in bed without any acute distress Constitutional + ill appearing and average body habitus Eyes PERRL, conjunctivae normal, anicteric sclerae ENMT external ear and nose normal, oropharynx normal Neck trachea midline, no thyromegaly Respiratory no respiratory distress Auscultation: lungs clear to auscultation bilaterally Cardiovascular Rate/Rhythm: regular rate and regular rhythm; not tachycardic Heart Sounds: normal S1 and normal S2; no murmur Extremities: no edema Gastrointestinal (Abdomen) Inspection/Auscultation: normal bowel sounds; abdomen not distended Percussion/Palpation: abdomen soft; abdomen nontender Neurologic normal touch/pain/proprioception, moves all extremities and awake Lymphatic no cervical or axillary lymphadenopathy Discharge Data Allergies Allergy/AdvReac Type Severity Reaction Status Date / Time No Known Allergies Allergy Verified 05/24/25 14:19 Consultations 05/24/25 11:29 ED Decision to Admit Stat 05/24/25 13:27 Consult Psychiatry Routine 05/25/25 08:00 Consult Neurology Routine Ordered Studies 05/24/25 09:19 CT head/brain wo con Stat 05/25/25 08:00 MR brain wo/w con Urgent Hospital Course (1) Confusion: 20-year-old male was admitted to [facility] last night from hospital from [facility] for suicidal ideation. Seems patient was having trouble walking and very tired on arrival to [facility]. Seems he fell over and was confused and was brought to the hospital .As per the [facility] did not give any more medication than what he is on from the outside hospital. Currently, not able to contact his father. Right now patient is drowsy. And when tried to wake him up he opens his eyes and mumbles and goes back to sleep. Could not get any history from the patient. He is able to move his neck on command freely. Not able get much history from the patient. For the ER he seemed to be oriented to name and followed some commands. #Confusion #Lethargy -Metabolic causes at this point have been ruled out -VBG normal, NH3 normal, TSH normal, B12 normal. 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 Afebrile, CK normal, no lead pipe rigidity -D/w parents yesterday by the outgoing hospitalist on 05/25/2025, offered to do LP but they declined as they believe this is primarily psych as it has been going on for 4-5 years - He has been communicating with his parents Plan -Greatly appreciate neuro and psychiatry input -Continue IV ativan trial for hypoactive delirium per psych -Holding home psych regimen -Avoid sedating medications -PRN zyprexa -Sitter for now -Ativan has been changed to 1mg PO TID as per Psyche- increased to 1 mg 4 times daily as per psychiatrist on 05/29/2025 -Has been eating and drinking reasonably Clinically much better but remains drowsy and weak Started on lithium for 450 mg twice daily Remains hemodynamically stable without any acute distress He has had physical therapy and did very well with that He remains medically stable to be discharged DVT prophylaxis Lovenox Disposition Telemetry Full code. I spent a total of 37 minutes seeing the patient, conversation with him, examination, reviewing medication and charts and documenting management. (2) Schizoaffective disorder, bipolar type: Has been getting medications as per psychiatrist (3) Encephalopathy: (4) Delirium: Total Time Total Time Spent Total Time Spent (In Minutes): 40 minutes Discharge Plan Discharge Items Patient Disposition: Transfer Behavioral Health Fac Reason For Visit: LETHARGY Discharge Diagnosis: Catatonic schizophrenia, lethargy Condition on Discharge: Fair Activity: Resume your previous activity Non-emergency contact: Primary Care Provider Call non-emergency contact if: you have any medication questions and your symptoms worsen Follow-up/Referrals: PCP,NO [Primary Care Provider] - Diet: Regular Diet Comment: safe tray Addtl Attending Provider Instructions: Please take precautions to avoid falls Take your medications as advised and that may need to be adjusted as per the psychiatrist Please make an appointment to PCP within 7 days following discharge from the [facility] Your clozapine and Lamictal have been discontinued Your lorazepam has been changed to 1 mg 4 times daily and your lithium carbonate remains at the same dose of 450 mg twice daily A lithium level and BMP should be done on Sunday as per request by the psychiatrist Pending Studies at Discharge: No Stand-Alone Forms: [facility] Skilled Items DNR: No Lines: None Urinary Catheter: No Medications and DC Order Prescriptions: New calcium carbonate [Tums] 200 mg calcium (500 mg) Tablet,Chewable 500 mg PO BID PRN (Reason: dyspepsia) Qty: 30 0RF Continued lithium carbonate 450 mg Tablet Extended Release 450 mg PO BID Changed lorazepam 1 mg Tablet 1 mg PO QID Qty: 0 0RF Discontinued lamotrigine [Lamictal] 25 mg Tablet 25 mg PO DAILY clozapine 25 mg Tablet 50 mg PO HS clozapine 25 mg Tablet 25 mg PO DAILY Discharge Orders: Discharge Order (Routine); Ordered 05/29/25 Ordered By: Olimpia Koroma Admission Data Admit Date/Time: 05/24/25 11:44 Attending Provider: Olimpia Koroma Admit Provider: Silvestre Davis Primary Care Provider: PCP,NO Other Providers: Silvestre Davis; Claribel Felton; Kiko Laureano; Domitila Ackerman; Kathia Valencia; Robbin Hernandez; Diana Conti; Bartolome Miguel; Stacy Roach; Fanny Rosales; Shad Velazquez; Fanny Mills; Kiko Ramirez; Garrett Smith; Shelton Flynn; Dylan Leggett; Sagrario Currie; Cabrera Alexander; Vish Turner; Kami Guzman; Khanh Colindres; Adelina Martin; Dylan Thomas; Brianna Tao; Guadalupe Milton; Iron Sequeira; Lance Perez Other Interventions: Discharge Summary Assessment (RN) Last Done: 05/29/25 17:27
== END 2025-05-29 18:49 | DRG 885 ==
LOC: ED 09:13 → SUATTDRO 11:44 → 2E 11:44